=== PATIENT | female | born 1935 | race Caucasian/White ===

== ENCOUNTER 2017-07-23 13:12 | Emergency (ER) | payer MEDICARE ==
[~2017-07-23] VITALS: Ht 172.7 cm; Wt 65.8 kg
[~2017-07-23 13:12] MED LIST: ASPIRIN325 PO; CIPRO250 M1 PO; COZAAR 25 MG TA25 M1 PO; FOLIC ACID1 MG PO; HCTZ PO; IBUPROFEN 200200 M1 PO; METHOTREXATE 22.5 MG PO; PREDNISONE 20 M20 MG PO; PREVALITE PACKE1 PKT PO; TENORMIN25 MG PO
[2017-07-23] MEDS ORDERED: [UNRECOGNIZED DRUG - OTHER] (13:21)
[2017-07-23 14:13] LABS: ABSOLUTE BASOPHILS 0.1 thou/uL (0.0-0.2); ABSOLUTE EOSINOPHILS 0.1 thou/uL (0.0-0.7); ABSOLUTE LYMPHOCYTES 1.6 thou/uL (0.8-5.3); ABSOLUTE MONOCYTES 0.5 thou/uL (0.0-1.2); ABSOLUTE NEUTROPHILS 4.7 thou/uL (1.6-8.1); BASOPHILS 1.4 %; HEMATOCRIT 36.7 % (37.0-47.0); HEMOGLOBIN 12.6 gm/dL (12.0-15.0); LYMPHOCYTES 22.9 %; MCH 30.2 pg (26.0-34.0); MCHC 34.3 g/dL (28.0-37.0); MCV 88.3 fL (80.0-100.0); MONOCYTES 7.2 %; MPV 7.9 fl. (7.2-11.1); NUCLEATED RBCS 0 /100WBC; PLATELET COUNT* 231 thou/uL (150-400); POLYS 66.5 %; RBC 4.16 mil/uL (4.20-5.00); RDW-CV 14.5 % (10.5-14.5); WBC 7.1 thou/uL (4.0-11.0)
[2017-07-23 14:23] LABS: ANION GAP 6 mmol/L (7-16); BUN 20 mg/dL (7-18); CALCIUM 8.3 mg/dL (8.5-10.1); CHLORIDE 108 mmol/L (98-107); CO2 29 mmol/L (21-32); CREATININE 0.9 mg/dL (0.6-1.3); GLUCOSE 96 mg/dL (70-99); POTASSIUM 4.1 mmol/L (3.5-5.1); SODIUM 143 mmol/L (136-145)
[2017-07-23 14:24] LABS: PROTIME 10.1 Seconds (9.20-11.50)
[2017-07-23 14:34] LABS: ALBUMIN 3.2 g/dL (3.4-5.0); ALKALINE PHOSPHATASE 130 U/L (46-116); NT-PRO BRAIN NAT PEPTIDE 228 pg/mL (<300); SGOT 12 U/L (15-37); SGPT 17 U/L (30-65); TOTAL BILIRUBIN 0.2 mg/dL (<0.1-1.0); TOTAL PROTEIN 7.5 g/dL (6.4-8.2); TROPONIN-I LEVEL <0.06 ng/mL (<0.06)
[2017-07-23 14:48] LABS: URINE BILIRUBIN NEGATIVE (Negative); URINE BLOOD NEGATIVE (Negative); URINE CLARITY CLEAR; URINE COLOR YELLOW; URINE GLUCOSE-RANDOM NEGATIVE (Negative); URINE KETONES NEGATIVE (Negative); URINE LEUKOCYTES-REFLEX TRACE (Negative); URINE NITRITE-REFLEX NEGATIVE (Negative); URINE PROTEIN NEGATIVE (Negative); URINE UROBILINOGEN 0.2 E.U./dl (0.2-1.0)
[2017-07-23 14:55] LABS: CRYSTALS None Seen /LPF (None Seen); HYALINE CASTS 0-3 Few /LPF (None Seen); MUCUS 0-3 Light strn/LPF (None Seen); SQUAMOUS 4-10 Moderate /LPF (0-3)
[2017-07-23 14:57] LABS: BACTERIA-REFLEX 1-9 Few /HPF (None Seen); URINE RBC 0-2 Rare /HPF (0-2); URINE WBC-REFLEX 0-5 Rare /HPF (0-5)
[2017-07-23] MEDS ORDERED: KEFLEX500 M1 PO (16:13)
[2017-07-23 17:02] VITALS: BP 133/75
--- NOTE | 2017-07-24 10:20 | EKG ---
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: CARMELLA : 1935 Requested By: Ha Banerjee Order Number: [id number] MD: Jaxson Gregg Measurements Intervals [place] Rate: 87 P: 81 ID: 185 QRS: 65 QRSD: 84 T: 70 QT: 382 QTc: 460 Interpretive Statements Sinus rhythm Atrial premature complex Compared to ECG 07/27/2016 08:41:11 Atrial premature complex(es) less frequent Electronically Signed On 07-24-2017 10:20:39 MANAGER PEDIATRIC by Jaxson Gregg [email or web address] <ELECTRONICALLY SIGNED> By: Jaxson Gregg MD, [facility] 07/24/17 1020 1318 18 Jaxson Gregg MD, FACC /EPI
== END 2017-07-23 17:03 | disposition home or self-care (01) ==
LOC: M.ERS 13:12
PROVIDERS: Emergency Medicine Emergency Medical Services
DX: N39.0 Urinary tract infection, site not specified (principal); R53.1 Weakness; F17.210 Nicotine dependence, cigarettes, uncomplicated; Z88.5 Allergy status to narcotic agent; Z88.2 Allergy status to sulfonamides; Z88.8 Allergy status to other drugs, medicaments and biological substances

== ENCOUNTER → 2017-11-24 | Outpatient (CLI) | payer MEDICARE ==
[~2017-11-24] MED LIST changes: +KEFLEX500 M1 PO; +[UNRECOGNIZED DRUG - OTHER]
[2017-11-24 08:19] LABS: CREATININE 0.9 mg/dL (0.6-1.3)
== END ==
LOC: M.CT 07:49 → M.LAB 08:00 → M.CT 09:00
PROVIDERS: Family Medicine
DX: K57.30 Diverticulosis of large intestine without perforation or abscess without bleeding (principal); D25.9 Leiomyoma of uterus, unspecified; I70.0 Atherosclerosis of aorta

== ENCOUNTER 2018-09-26 19:28 | Emergency (ER) | payer MEDICARE ==
[~2018-09-26] VITALS: Ht 170.2 cm; Wt 74.8 kg
[~2018-09-26 19:28] MED LIST changes: -PREVALITE PACKE1 PKT PO; +PREVALITE PACKET4 GM PO; -[UNRECOGNIZED DRUG - OTHER]; +[UNRECOGNIZED DRUG - OTHER] INH
[2018-09-26] MEDS ORDERED: DICLOFENAC SODI75 MG PO (19:38)
[2018-09-26 20:04] LABS: ABSOLUTE BASOPHILS 0.1 thou/uL (0.0-0.2); ABSOLUTE EOSINOPHILS 0.3 thou/uL (0.0-0.7); ABSOLUTE LYMPHOCYTES 1.9 thou/uL (0.8-5.3); ABSOLUTE MONOCYTES 0.5 thou/uL (0.0-1.2); ABSOLUTE NEUTROPHILS 4.3 thou/uL (1.6-8.1); BASOPHILS 1.1 %; EOSINOPHILS 4.4 %; HEMATOCRIT 34.8 % (37.0-47.0); HEMOGLOBIN 11.6 gm/dL (12.0-15.0); LYMPHOCYTES 26.9 %; MCH 29.5 pg (26.0-34.0); MCHC 33.2 g/dL (28.0-37.0); MCV 88.7 fL (80.0-100.0); MONOCYTES 7.5 %; MPV 7.9 fl. (7.2-11.1); NUCLEATED RBCS 0 /100WBC; PLATELET COUNT* 245 thou/uL (150-400); POLYS 60.1 %; RBC 3.93 mil/uL (4.20-5.00); RDW-CV 14.5 % (10.5-14.5); WBC 7.1 thou/uL (4.0-11.0)
[2018-09-26 20:13] LABS: CALCIUM 9.1 mg/dL (8.5-10.1); CREATININE 0.8 mg/dL (0.6-1.3); POTASSIUM 4.1 mmol/L (3.5-5.1)
[2018-09-26 20:18] LABS: ALBUMIN 2.9 g/dL (3.4-5.0); TOTAL BILIRUBIN 0.1 mg/dL (<0.1-1.0); TOTAL PROTEIN 7.3 g/dL (6.4-8.2)
[2018-09-26] MEDS ORDERED: ELIQUIS5 M1 PO (21:38)
[2018-09-26] MEDS ORDERED: ELIQUIS5 MG PO (21:38)
[2018-09-26 21:54] VITALS: BP 177/93
== END 2018-09-26 21:55 | disposition home or self-care (01) ==
LOC: M.ERS 19:28
PROVIDERS: Nurse Practitioner Family
DX: I82.402 Acute embolism and thrombosis of unspecified deep veins of left lower extremity (principal); F17.210 Nicotine dependence, cigarettes, uncomplicated; M06.9 Rheumatoid arthritis, unspecified; Z88.8 Allergy status to other drugs, medicaments and biological substances; Z88.5 Allergy status to narcotic agent; Z88.2 Allergy status to sulfonamides; Z90.49 Acquired absence of other specified parts of digestive tract

== ENCOUNTER 2018-09-27 08:07 | Inpatient (IN) | payer MEDICARE ==
[~2018-09-27] VITALS: Ht 167.6 cm; Wt 76.2 kg
[~2018-09-27 08:07] MED LIST changes: +DICLOFENAC SODI75 MG PO; +ELIQUIS5 M1 PO; +ELIQUIS5 MG PO
[2018-09-27 08:12] VITALS: BP 136/91
[2018-09-27 08:57] LABS: ABSOLUTE BASOPHILS 0.1 thou/uL (0.0-0.2); ABSOLUTE EOSINOPHILS 0.2 thou/uL (0.0-0.7); ABSOLUTE LYMPHOCYTES 1.6 thou/uL (0.8-5.3); ABSOLUTE MONOCYTES 0.4 thou/uL (0.0-1.2); ABSOLUTE NEUTROPHILS 5.6 thou/uL (1.6-8.1); BASOPHILS 1.3 %; EOSINOPHILS 2.9 %; HEMATOCRIT 37.8 % (37.0-47.0); HEMOGLOBIN 12.5 gm/dL (12.0-15.0); LYMPHOCYTES 19.7 %; MCH 29.4 pg (26.0-34.0); MCHC 33.1 g/dL (28.0-37.0); MCV 88.7 fL (80.0-100.0); MONOCYTES 5.2 %; MPV 8.1 fl. (7.2-11.1); NUCLEATED RBCS 0 /100WBC; PLATELET COUNT* 253 thou/uL (150-400); POLYS 70.9 %; RBC 4.26 mil/uL (4.20-5.00); RDW-CV 14.5 % (10.5-14.5); WBC 7.9 thou/uL (4.0-11.0)
[2018-09-27 09:02] LABS: ANION GAP 10 mmol/L (7-16); BUN 20 mg/dL (7-18); CALCIUM 9.3 mg/dL (8.5-10.1); CHLORIDE 107 mmol/L (98-107); CO2 27 mmol/L (21-32); CREATININE 0.8 mg/dL (0.6-1.3); GLUCOSE 118 mg/dL (70-99); POTASSIUM 4.2 mmol/L (3.5-5.1); SODIUM 144 mmol/L (136-145)
[2018-09-27 09:18] LABS: ALBUMIN 3.2 g/dL (3.4-5.0); ALKALINE PHOSPHATASE 121 U/L (46-116); NT-PRO BRAIN NAT PEPTIDE 229 pg/mL (<300); SGOT 13 U/L (15-37); SGPT 22 U/L (30-65); TOTAL BILIRUBIN 0.3 mg/dL (<0.1-1.0); TOTAL PROTEIN 7.8 g/dL (6.4-8.2); TROPONIN-I LEVEL <0.06 ng/mL (<0.06)
--- NOTE | 2018-09-27 09:28 | NUR ---
GEO NOTIFIED UPON PT RETURN FROM CT. PT CONNECTED TO MONITOR AND O2
--- NOTE | 2018-09-27 10:57 | EKG ---
[place] [address] ELECTROCARDIOGRAM REPORT Name: ALTA MORA Room: [place] [address] ADM IN .R.#: [id number] Admission: 09/27/18 Attend Phys: Albin Underwood Discharge: Date of : 37 Report #: [id number] THIS REPORT FOR: //name// [facility] ED Test Date: 2018-09-27 Test Time: 08:32:54 Pat Name: ALTA MORA Department: Room: [facility] Gender: F Zigzagger: Lillian WOOD : 1935 Requested By: Ha Banerjee Order Number: [id number] MD: Jose Chow Measurements Intervals [place] Rate: 72 P: NE: QRS: 40 QRSD: 92 T: 71 QT: 420 QTc: 460 Interpretive Statements Atrial flutter Abnormal R-wave progression, early transition Compared to ECG 07/23/2017 13:19:06 Sinus rhythm no longer present Atrial premature complex(es) no longer present Electronically Signed On 09-27-2018 10:57:06 CDT by Jose Chow [email or web address] <ELECTRONICALLY SIGNED> By: Jose Chow MD, [facility] 09/27/18 1057 0832 0832 Jose Chow MD, [facility] /EPI
[2018-09-27 11:49] VITALS: BP 152/76
[2018-09-27 12:15] VITALS: BP 148/75
[2018-09-27 16:00] VITALS: BP 152/85
--- NOTE | 2018-09-27 19:52 | NUR ---
ASSUMED CARE OF PT FROM ER. PT ARRIVED TO ROOM 232 AT APPROX 1200. PT A/O X4, C/O SOME BACK PAIN. PT INSTRUCTED LIMITED AMBULATION DUE TO DVT. PT VERBALIZED UNDERSTANDING. ADMISSION HX AND ASSESMENT DONE CHARTED. PT SR ON THE MONITOR, VSS. PT USES CALL LIGHT APPROPRIALATY. UP AD THEO. ON RA. REPORT GIVEN TO RUBA ARRIAZA
[2018-09-27 20:15] VITALS: BP 150/70
[2018-09-28] VITALS: BP 137/63
[2018-09-28 04:00] VITALS: BP 131/72
--- NOTE | 2018-09-28 05:11 | NUR ---
NO COMPLAIN OF CHEST PAIN AND LEG PAIN THE WHOLE NIGHT. NO RESPIRATOTRY DISTRESS NOTED. CALL BOYD AT BED SIDE.
[2018-09-28 08:52] VITALS: BP 144/69
--- NOTE | 2018-09-28 11:39 | NUR ---
MET WITH PT TO DISCUSS HOME SITUATION/DC PLANNING. PT LIVES WITH COUSIN, SHE IS INDEPENDENT AND ACTIVE. USES NO EQUIPMENT AND HASN'T HAD HH OR BEEN TO SNF. WAS DX WITH DVT IN ER AND ADMITTED NOW WITH PE. PT VOICED CONCERN ABOUT COST OF ELIQUIS. DISCUSSED WITH DR OLIVER, SCRIPT FOR ELIQUIS 5MG BID RECEIVED AND CALLED INTO [employer]. COPAY IS $40. PT INFORMED AND GIVEN 1ST MONTH FREE CARD. EXPLAINED TO PT THAT DR THAT DISCHARGES HER MAY GIVE ANOTHER SCRIPT. WILL FOLLOW ANTICIPATE DC TOMORROW
[2018-09-28 13:00] VITALS: BP 145/65
[2018-09-28 17:55] VITALS: BP 120/61
[2018-09-28 20:00] VITALS: BP 130/74
--- NOTE | 2018-09-28 20:00 | NUR ---
RECEIVED REPORT AND ASSUMED CARE OF PT, ASSESSMENT COMPLETED. NO SOB NOTED. TELEMETRY ON SHOWING A-FIB/SR WITH FREQ PAC. WILL CONT TO MONITOR AND ASSIST NEEDED.
[2018-09-29 00:01] VITALS: BP 132/65
[2018-09-29 04:00] VITALS: BP 135/61
[2018-09-29 05:06] LABS: ABSOLUTE BASOPHILS 0.1 thou/uL (0.0-0.2); ABSOLUTE EOSINOPHILS 0.3 thou/uL (0.0-0.7); ABSOLUTE LYMPHOCYTES 2.2 thou/uL (0.8-5.3); ABSOLUTE MONOCYTES 0.5 thou/uL (0.0-1.2); ABSOLUTE NEUTROPHILS 3.8 thou/uL (1.6-8.1); BASOPHILS 1.7 %; EOSINOPHILS 3.9 %; HEMOGLOBIN 11.1 gm/dL (12.0-15.0); LYMPHOCYTES 31.5 %; MCH 29.1 pg (26.0-34.0); MCHC 32.7 g/dL (28.0-37.0); MCV 88.8 fL (80.0-100.0); MONOCYTES 7.7 %; MPV 8.2 fl. (7.2-11.1); NUCLEATED RBCS 0 /100WBC; PLATELET COUNT* 251 thou/uL (150-400); POLYS 55.2 %; RBC 3.83 mil/uL (4.20-5.00); RDW-CV 14.1 % (10.5-14.5); WBC 6.8 thou/uL (4.0-11.0)
--- NOTE | 2018-09-29 05:47 | NUR ---
SLEPT WELL TONIGHT. INDEPENDENT WITH STEADY GAIT TO AND FROM BR. TELEMETRY SHOWING SR WITH FREQ PAC, NO CHANGE IN ASSESSMENT. HS GOALS OF REST AND SAFETY ACHIEVED. HOURLY ROUNDING OBSERVED.
[2018-09-29 07:30] VITALS: BP 135/72
[2018-09-29] MEDS ORDERED: ELIQUIS5 M1 PO (11:22)
[2018-09-29] MEDS ORDERED: ELIQUIS5 MG PO (11:22)
[2018-09-29 11:50] VITALS: BP 135/72
--- NOTE | 2018-09-29 12:34 | NUR ---
RECEIVED DISCHARGE ORDERS PER DR BERGER. EDUCATED THE PATIENT AND HER FAMILY ON F/U APPOINTMENT WITH HER PRIMARY DR. EDUCATED ON HOME MEDICATIONS. NEW SCRIPT GIVEN WITH MEDICATION INFORMATION SHEETS. SCRIPT FOR LUCIO WAS CALLED INTO PATIENTS PHARMACY PER CASE MANAGEMENT AND IS READY FOR PICKUP. PATIENTS FAMILY WAS ABLE TO VERIFY SCRIPT WAS READY FOR PICKUP PRIOR TO PATIENT DISCHARGING. BOTH PATIENT AND FAMILY DENIED ANY QUESTIONS/CONCERNS AT TIME OF DISCHARGE. SHE IS LEAVING VIA WHEELCHAIR ACCOMPANIED BY NURSING STAFF WITH HER FAMILY TO TRANSPORT. ALL BELONGINGS PACKED AND LEAVING WITH THE PATIENT.
== END 2018-09-29 12:26 | disposition home or self-care (01) | DRG 176 ==
LOC: M.ERS 08:07 → M.TBA-ER 10:19 → M.2W 10:19
PROVIDERS: Emergency Medicine Emergency Medical Services; ADMIT Internal Medicine
DX: I26.99 Other pulmonary embolism without acute cor pulmonale (principal); I82.409 Acute embolism and thrombosis of unspecified deep veins of unspecified lower extremity; I10 Essential (primary) hypertension; E78.5 Hyperlipidemia, unspecified; F17.210 Nicotine dependence, cigarettes, uncomplicated; R55 Syncope and collapse; Z79.899 Other long term (current) drug therapy; Z87.440 Personal history of urinary (tract) infections; Z90.49 Acquired absence of other specified parts of digestive tract; Z88.6 Allergy status to analgesic agent; Z88.2 Allergy status to sulfonamides; Z88.8 Allergy status to other drugs, medicaments and biological substances

== ENCOUNTER 2019-02-12 08:42 | Inpatient (IN) | payer MEDICARE ==
[2019-02-12] VITALS (17 sets, daily range): BP systolic 79–148; BP diastolic 51–99
[~2019-02-12] VITALS: Ht 170.2 cm; Wt 73.9 kg
[2019-02-12] MEDS ORDERED: DICLOFENAC SODI75 MG PO (09:00)
[2019-02-12] MEDS ORDERED: ASPIR 8181 MG PO (09:01)
[2019-02-12 09:20] LABS: BE -3.4 mmol/L (-2 to +3); PCO2 42.1 mmHg (35.0-45.0); PO2 78.8 mmHg (75.0-100.0)
[2019-02-12 09:43] LABS: HEMATOCRIT 37.3 % (37.0-47.0); HEMOGLOBIN 12.3 gm/dL (12.0-15.0); MCH 29.2 pg (26.0-34.0); MCHC 32.9 g/dL (28.0-37.0); MCV 88.9 fL (80.0-100.0); MPV 8.3 fl. (7.2-11.1); NUCLEATED RBCS 0 /100WBC; PLATELET COUNT* 214 thou/uL (150-400); RBC 4.19 mil/uL (4.20-5.00); RDW-CV 15.1 % (10.5-14.5); WBC 12.6 thou/uL (4.0-11.0)
[2019-02-12 09:56] LABS: ANION GAP 8 mmol/L (7-16); BUN 26 mg/dL (7-18); CALCIUM 8.4 mg/dL (8.5-10.1); CHLORIDE 105 mmol/L (98-107); CO2 27 mmol/L (21-32); CREATININE 0.9 mg/dL (0.6-1.3); GLUCOSE 109 mg/dL (70-99); POTASSIUM 4.2 mmol/L (3.5-5.1); SODIUM 140 mmol/L (136-145)
[2019-02-12 10:01] LABS: ALBUMIN 3.2 g/dL (3.4-5.0); ALKALINE PHOSPHATASE 110 U/L (46-116); SGOT 14 U/L (15-37); SGPT 20 U/L (30-65); TOTAL BILIRUBIN 0.4 mg/dL (<0.1-1.0); TROPONIN-I LEVEL <0.06 ng/mL (<0.06)
[2019-02-12 10:10] LABS: ABSOLUTE EOSINOPHILS 0.1 thou/uL (0.0-0.7); ABSOLUTE LYMPHOCYTES 1.4 thou/uL (0.8-5.3); ABSOLUTE MONOCYTES 0.3 thou/uL (0.0-1.2); ABSOLUTE NEUTROPHILS 10.8 thou/uL (1.6-8.1); ANISOCYTOSIS 1+; PLATELET ESTIMATE ADEQUATE; POIKILOCYTOSIS 1+
--- NOTE | 2019-02-12 16:56 | EKG ---
[place] [address] ELECTROCARDIOGRAM REPORT Name: ALTA MORA Room: [address] ADM IN M.R.#: [id number] Admission: 02/12/19 Attend Phys: Pasquale Jones MD Discharge: Date of : 37 Report #: [id number] THIS REPORT FOR: //name// [facility] ED Test Date: 2019-02-12 Test Time: 08:48:37 Pat Name: ALTA MORA Department: Room: [facility] Gender: F Water Service Supervisor: : 1935 Requested By: Jonelle Chase Order Number: [id number] MD: Smith Jose Measurements Intervals [place] Rate: 101 P: GA: QRS: 44 QRSD: 82 T: 65 QT: 364 QTc: 472 Interpretive Statements Sinus tachycardia Compared to ECG 09/27/2018 08:32:54 Atrial flutter no longer present Electronically Signed On 02-12-2019 16:55:51 CDT by Smith Jose [email or web address] <ELECTRONICALLY SIGNED> By: Smith Jose MD, [facility] 02/12/19 1655 Smith Jose MD, [facility] /EPI
--- NOTE | 2019-02-12 16:56 | EKG ---
[place] [address] ELECTROCARDIOGRAM REPORT Name: ALTA MORA Room: [address] ADM IN M.R.#: [id number] Admission: 02/12/19 Attend Phys: Pasquale Jones MD Discharge: Date of : 37 Report #: [id number] THIS REPORT FOR: //name// [facility] ED Test Date: 2019-02-12 Test Time: 09:20:48 Pat Name: ALTA MORA Department: Room: [facility] Gender: F Conference Manager: : 1935 Requested By: Jonelle Chase Order Number: [id number] MD: Smith Jose Measurements Intervals [place] Rate: 100 P: 83 [place]: 194 QRS: 29 QRSD: 80 T: 79 QT: 367 QTc: 474 Interpretive Statements Sinus tachycardia Atrial premature complex Anteroseptal infarct, age indeterminate Compared to ECG 09/27/2018 08:32:54 Atrial premature complex(es) now present Myocardial infarct finding now present Atrial flutter no longer present Electronically Signed On 02-12-2019 16:56:30 CDT by Smith Jose [email or web address] <ELECTRONICALLY SIGNED> By: Smith Jose MD, FAC 02/12/19 1656 9 9 Smith Jose MD, FAC /EPI
[2019-02-13] VITALS (7 sets, daily range): BP systolic 98–131; BP diastolic 50–79
[2019-02-13 03:40] LABS: HEMATOCRIT 34.8 % (37.0-47.0); HEMOGLOBIN 11.5 gm/dL (12.0-15.0); MCH 29.5 pg (26.0-34.0); MCHC 32.9 g/dL (28.0-37.0); MCV 89.6 fL (80.0-100.0); RBC 3.88 mil/uL (4.20-5.00); RDW-CV 15.7 % (10.5-14.5); WBC 7.4 thou/uL (4.0-11.0)
[2019-02-13 03:52] LABS: CALCIUM 7.7 mg/dL (8.5-10.1); CREATININE 0.9 mg/dL (0.6-1.3); MAGNESIUM 1.9 mg/dL (1.8-2.4); POTASSIUM 4.7 mmol/L (3.5-5.1)
--- NOTE | 2019-02-13 11:21 | EKG ---
[place] [address] ELECTROCARDIOGRAM REPORT Name: ALTA MORA Room: [address] DIS IN M.R.#: [id number] Admission: 02/12/19 Attend Phys: Pasquale Jones MD Discharge: 02/13/19 Date of : 37 Report #: [id number] THIS REPORT FOR: //name// [facility] Test Date: 2019-02-13 Test Time: 08:29:40 Pat Name: ALTA MORA Department: Room: [address] Gender: F Dental Instructor: : 1935 Requested By: Smith Jose Order Number: [id number] Corinna MD: Jaxson Gregg Measurements Intervals [place] Rate: 61 P: [place]: 196 QRS: 41 QRSD: 86 T: 73 QT: 462 QTc: 466 Interpretive Statements Atrial-paced complexes Compared to ECG 02/12/2019 09:20:48 Sinus tachycardia no longer present Atrial paced rhythm noted Electronically Signed On 02-13-2019 11:21:30 CDT by Jaxson Gregg [email or web address] <ELECTRONICALLY SIGNED> By: Jaxson Gregg MD, [facility] 02/13/19 1121 0829 0829 Jaxson Gregg MD, [facility] /EPI
--- NOTE | 2019-02-13 11:22 | EKG ---
[place] [address] ELECTROCARDIOGRAM REPORT Name: ALTA MORA Room: [address] DIS IN M.R.#: [id number] Admission: 02/12/19 Attend Phys: Pasquale Jones MD Discharge: 02/13/19 Date of : 37 Report #: [id number] THIS REPORT FOR: //name// [facility] Test Date: 2019-02-13 Test Time: 08:30:39 Pat Name: ALTA MORA Department: Room: [address] Gender: F Cycle Analyst: : 1935 Requested By: Smith Jose Order Number: [id number] Corinna MD: Jaxson Gregg Measurements Intervals [place] Rate: 86 P: NC: 130 QRS: 37 QRSD: 99 T: 71 QT: 455 QTc: 545 Interpretive Statements Atrial-ventricular dual-paced complexes No further rhythm analysis attempted due to paced rhythm Electronically Signed On 02-13-2019 11:22:21 CDT by Jaxson Gregg [email or web address] <ELECTRONICALLY SIGNED> By: Jaxson Gregg MD, [facility] 02/13/19 1122 9 9 Jaxson Gregg MD, FAC /EPI
--- NOTE | 2019-02-14 09:12 | CON ---
[facility] [address] [place] [address] CONSULTATION Name: ALTA MORA Room: [address] IN M.R.#: [id number] Admission: 02/12/19 Attend Phys: Pasquale Jones MD Discharge: 02/13/19 Date of : 37 Report #: [id number] THIS REPORT FOR: //name// CC: Pasquale Carey DO DATE OF SERVICE: 02/12/2019 INDICATION: Near-syncope. HISTORY OF PRESENT ILLNESS: The patient is a very pleasant 83-year-old white female, who was brought to the Emergency Room after a near syncopal episode. While in the Emergency Room, she had a recurrent episode that she describes as starting out like mini hot flash. She was noted to have sinus node arrest with ventricular escape rhythm in the 30s. The patient states she has been having episodes like this for the last 2 months. She denies any chest pain, tightness, or pressure. PAST MEDICAL HISTORY: 1. Hypertension. 2. Remote history of pulmonary embolus with completed course of anticoagulant. 3. Left elbow fracture. 4. Appendectomy. 5. Cholecystectomy. 6. Pilonidal cyst removal. 7. Rheumatoid arthritis. 8. Shingles. ALLERGIES: ATENOLOL, CODEINE, AND SULFA. CURRENT MEDICATIONS: Cholestyramine 4 grams daily, losartan 25 mg daily, Voltaren 75 mg b.i.d., aspirin 81 mg daily. FAMILY HISTORY: Noncontributory. SOCIAL HISTORY: The patient smokes daily. She denies use of alcohol. PHYSICAL EXAMINATION: VITAL SIGNS: Blood pressure 120/82, pulse presently 80 and regular. GENERAL: This is a pleasant female in no distress. Mood and affect appropriate. HEENT: Extraocular muscles intact. Mucous membranes moist. NECK: Shows no jugular venous distention. There are no carotid bruits. CHEST: Reveals diminished breath sounds without wheezes or rales. CARDIOVASCULAR: Reveals a regular rhythm with normal S1 [place] [address] CONSULTATION Name: ALTA MORA Room: [address] IN ..#: [id number] Admission: 02/12/19 Attend Phys: Pasquale Jones MD Discharge: 02/13/19 Date of : 37 Report #: [id number] appreciate gallop or murmur. ABDOMEN: Reveals normal bowel sounds. The abdomen is soft, nontender. EXTREMITIES: Shows no edema. Peripheral pulses palpable. SKIN: Warm and dry. LABORATORY DATA: A 12-lead EKG shows sinus rhythm without acute ST or T-wave abnormality. Telemetry monitoring shows an episode of sinus node arrest with ventricular escape. IMPRESSION AND RECOMMENDATIONS: 1. 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 Recommend permanent pacemaker placement. 2. Hypertension, presently stable. Continue losartan at current dose. 3. Tobacco use, cessation advised. <ELECTRONICALLY SIGNED> By: Smith Jose MD, FACC 02/14/19911 1117 2035Michae Kirit Jose MD, FACC /nt
--- NOTE | 2019-02-22 11:07 | CARD ---
[address] [address] CARDIAC CATH REPORT Name: MORGANALTA Lillian Room: [address]#: [id number] Admission: 02/12/19 Attend Phys: Pasquale Jones MD Discharge: 02/13/19 Date of : 37 Report #: [id number] THIS REPORT FOR: //name// ADDENDUM APPROVED REPORT Study performed: 02/12/2019 16:17:38 Patient Status: In-Patient Room #: Event Personnel: Smith Jose Botany Professor, Ayleen Bertrand RN Flight Line Service Attendant, Vanessa Rose RTR ScrubYoav Becki RTR Monitor, Zari Shaw RN Flight Line Service Attendant Exam: Insertion of Dual Chamber Permanent Pacemaker Indications: Complete heart block The patient is a 83 year-old female with a history of sinus node arrest and syncope. Conscious Sedation Start time: 17:17 End Time: 17:55 Fentanyl 50 mcg Versed 2 mg 3.4 minutes fluoro, 166 mGy. Implanted Devices: Eluna 8 DR-T ([employer] generator, model #967499, serial #[id number]. Solia S53 Atrial Lead, model #156905, serial number [id number]. Solia S60 Ventricular Lead, model #600204, serial #[id number] Procedure The patient underwent informed consent. We discussed the details of the procedure including the risks, which include, but not limited to bleeding, infection, vascular damage, cardiac perforation, and pneumothorax. She understood these risks and was willing to proceed. As such, she was brought to the EP/Cardiac Catheterization laboratory in a fasting and sedated state and prepped and draped in a The patient underwent conscious sedation, with no related complications. The patient was brought to the EP/Cardiac Catheterization laboratory and the left chest and shoulder were prepped and draped in a sterile manner. During this case, Fluoroscopy and 20cc Omnipaque were used for imaging. The left subclavian region was infiltrated with 2% Lidocaine subcutaneous anesthesia. A transverse incision was made in [place] [address] CARDIAC CATH REPORT Name: ALTA MORA Room: [address]#: [id number] Admission: 02/12/19 Attend Phys: Pasquale Jones MD Discharge: 02/13/19 Date of : 37 Report #: [id number] The subcutaneous pocket was formed via blunt dissection. Percutaneous venous access was achieved and an introducer sheath was inserted into the left Subclavian vein. Through the introducer sheaths the atrial and ventricular lead wires were positioned in the right atrial appendage and right ventricular apex respectively. Utilizing fluoroscopic guidance, the atrial and ventricular lead wires were advanced over the wires and positioned in the right atria and right ventricle respectively. Capturing and sensing thresholds were verified. Electrode Parameters P Wave: 3.10 mV R Wave: 9.40 mV Atrial Threshold: 0.8 V at 0.40 ms Ventricular Threshold: 0.8 V at 0.40 ms Atrial Resistance: 526 ohms Ventricular Resistance: 936 ohms Dual Chamber The atrial and ventricular leads were then secured using 0 silk sutures. The subcutaneous pocket was irrigated with ancef antibiotic solution.The atrial and ventricular leads were attached to the appropriate receptacles on the pulse generator and set screws firmly tightened to insure adequate contact and stability. The lead and pulse generator were placed into the subcutaneous pocket. Sharp and sponge counts were confirmed to be correct. At this time the pocket was closed subcutaneously with a 2.0 Vicryl and the skin was closed with a 4.0 Vicryl. The operative site was dressed in sterile fashion with steri strips, benzoin spray, telfa, tegaderm and the patient was transferred to the floor in stable condition. Complications The patient tolerated the procedure well and there were no complications associated with the procedure. Findings Specimens Removed: N/A Estimated Blood Loss: <5ml Conclusion 1. Complete heart block. 2. Successful placement of a dual-chamber pacemaker with atrial [place] [address] CARDIAC CATH REPORT Name: ALTA MORA Room: [address] IN M.R.#: [id number] Admission: 02/12/19 Attend Phys: Pasquale Jones MD Discharge: 02/13/19 Date of : 37 Report #: [id number] Recommendations 1. Follow-up site check in one week. 2. Follow-up device interrogation in one to 2 months. <ELECTRONICALLY SIGNED> By: Smith Jose MD, FACC 02/22/[address] [facility] Jose MD, FACC /INF
== END 2019-02-13 10:20 | disposition home or self-care (01) | DRG 243 ==
LOC: M.ERS 08:42 → M.ICU 09:43 → M.TBA-ER 09:43 → M.ICU 10:47
PROVIDERS: Personal Emergency Response Attendant; ADMIT Internal Medicine
PROC: 0JH606Z Insertion of Pacemaker, Dual Chamber into Chest Subcutaneous Tissue and Fascia, Open Approach (ICD-10-PCS; principal; 2019-02-12)
PROC: 02H63JZ Insertion of Pacemaker Lead into Right Atrium, Percutaneous Approach (ICD-10-PCS; principal; 2019-02-12)
PROC: 02HK3JZ Insertion of Pacemaker Lead into Right Ventricle, Percutaneous Approach (ICD-10-PCS; principal; 2019-02-12)
DX: I44.2 Atrioventricular block, complete (principal); R65.10 Systemic inflammatory response syndrome (SIRS) of non-infectious origin without acute organ dysfunction; D68.59 Other primary thrombophilia; I10 Essential (primary) hypertension; M06.9 Rheumatoid arthritis, unspecified; I95.9 Hypotension, unspecified; F17.210 Nicotine dependence, cigarettes, uncomplicated; Z87.81 Personal history of (healed) traumatic fracture; Z86.711 Personal history of pulmonary embolism; Z90.49 Acquired absence of other specified parts of digestive tract; Z79.82 Long term (current) use of aspirin; Z79.899 Other long term (current) drug therapy; Z88.2 Allergy status to sulfonamides; Z86.718 Personal history of other venous thrombosis and embolism; Z88.5 Allergy status to narcotic agent; Z88.8 Allergy status to other drugs, medicaments and biological substances; Z71.6 Tobacco abuse counseling; Z82.49 Family history of ischemic heart disease and other diseases of the circulatory system

== ENCOUNTER 2019-11-28 08:15 | Observation (INO) | payer MEDICARE ==
[~2019-11-28] VITALS: Ht 170.2 cm; Wt 74.8 kg
[2019-11-28 08:15] VITALS: BP 147/64
[~2019-11-28 08:15] MED LIST changes: +ASPIR 8181 MG PO
[2019-11-28] MEDS ORDERED: ANORO ELLIPTA1 EACH INH (08:20)
[2019-11-28 08:49] LABS: CALCIUM 8.7 mg/dL (8.5-10.1); CREATININE 0.9 mg/dL (0.6-1.3); POTASSIUM 4.8 mmol/L (3.5-5.1)
[2019-11-28 08:53] LABS: APTT 24.2 Seconds (25.0-31.3); PROTIME 10.2 Seconds (9.20-11.50)
[2019-11-28 08:58] LABS: ALBUMIN 3.7 g/dL (3.4-5.0); TOTAL BILIRUBIN 0.5 mg/dL (<0.1-1.0); TOTAL PROTEIN 8.3 g/dL (6.4-8.2)
[2019-11-28 09:29] LABS: ABSOLUTE BASOPHILS 0.1 thou/uL (0.0-0.2); ABSOLUTE EOSINOPHILS 0.1 thou/uL (0.0-0.7); ABSOLUTE LYMPHOCYTES 1.4 thou/uL (0.8-5.3); ABSOLUTE MONOCYTES 0.3 thou/uL (0.0-1.2); ABSOLUTE NEUTROPHILS 5.3 thou/uL (1.6-8.1); BASOPHILS 1.1 %; HEMATOCRIT 42.6 % (37.0-47.0); HEMOGLOBIN 14.3 gm/dL (12.0-15.0); MCH 29.8 pg (26.0-34.0); MCHC 33.7 g/dL (28.0-37.0); MCV 88.5 fL (80.0-100.0); MONOCYTES 4.7 %; MPV 8.8 fl. (7.2-11.1); NUCLEATED RBCS 0 /100WBC; PLATELET COUNT* 244 thou/uL (150-400); POLYS 73.2 %; RBC 4.81 mil/uL (4.20-5.00); RDW-CV 15.2 % (10.5-14.5); WBC 7.3 thou/uL (4.0-11.0)
[2019-11-28 10:54] LABS: URINE BILIRUBIN NEGATIVE (Negative); URINE BLOOD NEGATIVE (Negative); URINE CLARITY CLEAR; URINE COLOR YELLOW; URINE GLUCOSE-RANDOM NEGATIVE (Negative); URINE KETONES NEGATIVE (Negative); URINE LEUKOCYTES-REFLEX NEGATIVE (Negative); URINE PROTEIN NEGATIVE (Negative); URINE UROBILINOGEN 0.2 E.U./dl (0.2-1.0)
[2019-11-28 10:55] LABS: URINE NITRITE-REFLEX POSITIVE (Negative)
[2019-11-28 11:01] LABS: BACTERIA-REFLEX >30 Many /HPF (None Seen); CASTS None Seen /LPF (None Seen); CRYSTALS None Seen /LPF (None Seen); MUCUS 0-3 Light strn/LPF (None Seen); SQUAMOUS 0-3 Few /LPF (0-3); URINE RBC 0-2 Rare /HPF (0-2); URINE WBC-REFLEX 0-5 Rare /HPF (0-5)
[2019-11-28 11:12] LABS: CHOLESTEROL 230 mg/dL (<200); HDL CHOLESTEROL 82 mg/dL (>40); LDL CHOLESTEROL 134 mg/dL (<100); SERUM ASSESSMENT Clear; TC:HDL 2.8 Ratio (Not establshd); TRIGLYCERIDE 72 mg/dL (<150); VLDL 14 mg/dL (<40)
[2019-11-28 14:25] VITALS: BP 145/80
[2019-11-28 14:34] VITALS: BP 120/70
[2019-11-28 16:10] VITALS: BP 118/60
--- NOTE | 2019-11-28 16:18 | EKG ---
[place] [address] ELECTROCARDIOGRAM REPORT Name: ALTA MORA Room: [address] M.R.#: [id number] Admission: 11/28/19 Attend Phys: Pasquale Jones, Discharge: Date of : 37 Date of Service: 11/28/19 0848 Report #: [id number] THIS REPORT FOR: //name// [facility] ED Test Date: 2019-11-28 Test Time: 08:48:12 Pat Name: ALTA MORA Department: Room: [facility] Gender: F Digester Operator: ELENA : 1935 Requested By: David Duckworth Order Number: [id number] MD: Tam Bass Measurements Intervals [place] Rate: 72 P: [place]: QRS: 27 QRSD: 95 T: 63 QT: 432 QTc: 473 Interpretive Statements Sinus rhythm Compared to ECG 02/13/2019 08:30:39 sinus rhythm is noted Electronically Signed On 11-28-2019 16:18:41 CDT by Tam Bass [email or web address] <ELECTRONICALLY SIGNED> By: Tam Bass MD, [facility] 11/28/19 1618 0848 0848 Tam Bass MD, [facility] /EPI
--- NOTE | 2019-11-28 16:19 | EKG ---
[place] [address] ELECTROCARDIOGRAM REPORT Name: GABRIEL MORAE Lillian Room: [address]R.#: [id number] Admission: 11/28/19 Attend Phys: Pasquale Jones, Discharge: Date of : 37 Date of Service: 11/28/19 1020 Report #: [id number] THIS REPORT FOR: //name// [facility] ED Test Date: 2019-11-28 Test Time: 10:20:43 Pat Name: ALTA MORA Department: Room: [facility] Gender: F Tuft Machine Operator: MINDY : 1935 Requested By: David Duckworth Order Number: [id number] MD: Tam Bass Measurements Intervals [place] Rate: 73 P: -11 UT: 257 QRS: 35 QRSD: 101 T: 67 QT: 418 QTc: 461 Interpretive Statements Sinus rhythm Atrial premature complex Compared to ECG 11/28/2019 08:48:12 Atrial premature complex(es) now present Electronically Signed On 11-28-2019 16:19:17 CDT by Tam Bass [email or web address] <ELECTRONICALLY SIGNED> By: Tam Bass MD, [facility] 11/28/19 1619 1020 1020 Tam Bass MD, [facility] /EPI
--- NOTE | 2019-11-28 18:43 | NUR ---
RECEIVED REPORT FROM [facility] IN THE ER. PT ARRIVED TO TELE FLOOR AROUND 1434, ASSUMED CARE. PT A&O X4. ADMISSION ASSESSMENT, HISTORY AND EDUCATION COMPLETED CHARTED. MEDS PER EMAR. IV INTACT. PT DENIES PAIN OR DISCOMFORT. NEURO CONSULTED- PT TO HAVE A CTA ANGIOGRAM TOMORROW. NIH 1. FAMILY WAS AT BEDSIDE FOR ADMISSION AND THEN LEFT. PT TOLERATING DINNER. UP WITH SBA. PT CURRENTLY RESTING IN BED WATCHING TV. FALL PRECAUTIONS IN PLACE. CALL LIGHT IS WITHIN REACH. HOURLY ROUNDING PERFORMED. WCTM FOR DURATION OF SHIFT.
[2019-11-28 20:00] VITALS: BP 117/70; BP 172/73
[2019-11-29] VITALS: BP 151/82
[2019-11-29 01:08] LABS: CALCIUM 7.9 mg/dL (8.5-10.1); POTASSIUM 4.3 mmol/L (3.5-5.1)
[2019-11-29 04:00] VITALS: BP 175/85
--- NOTE | 2019-11-29 07:50 | NUR ---
ASSUMED PT CARE AT APPROX 1930. PT IS AWAKE AND ORIENTED X4. PROVIDER RELATIONS REPRESENTATIVE IS TRACING SR. PT DENIES PAIN. NIH IS 0. NEURO CHECKS DONE Q3H CHARTED. BOLUS OF 500ml OF NS GIVEN ORDERED BY DR ORTEGA, BMP CHECKED, SEE MAR, BUN, GFR, CREATININE RESULTS COMMUNICATED TO DR ORTEGA AFTER BOLUS, DR ORTEGA STATED TO HAVE BMP REPEATED AT 0730-ORDERS PUT IN, AND TO CALL HIM WITH RESULTS, CTA OF THE HEAD TO BE DONE IN AM AT AROUND 0930AM DEPENDING ON BMP RESULTS. NO ACUTE CHANGES, NEUROLOGIC CHANGES NOTED THROUGHOUT THIS SHIFT. REPORT GIVEN TO MONY ARRIAZA.
[2019-11-29 08:00] VITALS: BP 153/83
[2019-11-29] MEDS ORDERED: LIPITOR40 MG PO (08:12)
[2019-11-29] MEDS ORDERED: CLOPIDOGREL75 MG PO (08:12)
[2019-11-29 08:37] LABS: CALCIUM 8.2 mg/dL (8.5-10.1); POTASSIUM 4.1 mmol/L (3.5-5.1)
[2019-11-29 09:25] LABS: HEMATOCRIT 40.4 % (37.0-47.0); HEMOGLOBIN 13.4 gm/dL (12.0-15.0); MCH 29.4 pg (26.0-34.0); MCHC 33.1 g/dL (28.0-37.0); MCV 88.9 fL (80.0-100.0); MPV 8.3 fl. (7.2-11.1); RBC 4.55 mil/uL (4.20-5.00); RDW-CV 15.4 % (10.5-14.5); WBC 6.7 thou/uL (4.0-11.0)
--- NOTE | 2019-11-29 11:42 | CON ---
[address] [address] CONSULTATION Name: MORGANALTA Lillian Room: [address] Narinder#: [id number] Admission: 11/28/19 Attend Phys: Pasquale Jones MD Discharge: Date of : 37 Report #: [id number] THIS REPORT FOR: //name// cc: Tam Carey John E. DO ~ THIS REPORT FOR: //name// CC: Pasquale Carey DATE OF SERVICE: 11/28/2019 HISTORY OF PRESENT ILLNESS: This is an 84-year-old female patient who was seen by me for stroke. The patient's symptom is that of dizziness. This dizziness started about 2-3 days ago. It started spontaneously without any trauma. It does look like when she moves her head, it becomes worse. She does not have much ataxia. Symptoms have not become better. She had another episode of dizziness like this before, but has not had that for some time and she does not know when was the last time she had that episode. She was evaluated by in the Emergency Room and she got some dye there with a CT angiogram. REVIEW OF SYSTEMS: Positive for the fact that she was diagnosed with a stroke on the CT; I reviewed those films and it looks like the patient had a small stroke; it is in the left thalamus area, but brainstem and cerebellum looks okay on CT, although CT is not a very good test for them. She has complained of some tingling in the lower extremities, but she did not describe that tingling to me. She has described some headaches in the past, but now she complained of some neck pain that is difficult to evaluate because she does have a history of rheumatoid arthritis. She does have a prior history of hypercoagulable state. She was in fact on Eliquis for a few months at one time. She had a prior history of shingles, bradycardia, appendectomy, gallbladder. Review of systems also indicated that she is not complaining of any eye, cardiac symptoms. She sometimes looks a little deep short of breath, but she said she is not having any shortness of breath. She had some nausea, vomiting, which is better. She does not have any urinary symptom and she does not have any musculoskeletal, constitutional, dermatological, hematological, psychiatric, throat, allergic symptom associated with present symptomatology. PAST MEDICAL HISTORY: Negative for any stroke. FAMILY HISTORY: Negative for any early age stroke. SOCIAL HISTORY: She smokes. PHYSICAL EXAMINATION: Indicates she is alert, responsive, able to follow simple and complex command. Her speech, concentration, fund [place] [address] CONSULTATION Name: ALTA MORA Room: [address] M.RCarri#: [id number] Admission: 11/28/19 Attend Phys: Pasquale Jones MD Discharge: Date of : 36 Report #: [id number] at her baseline. Cranial nerve examination 2-12 looks unremarkable. She has a symmetrical strength, sensation, reflexes and tone in all 4 extremities. Her fazyrc-ld-gytn and igjg-ul-yhai is unremarkable. There is no meningeal sign. I could not look at the patient's fundus. She is a well-built individual. She does not have any dysmorphic features of eyes, ears and face. Her blood pressure is 118/60, respirations 16, pulse is 65, temperature is 97.8. Her hearing and vision is adequate. Her pulses are nicely palpable. LABORATORY DATA: Her white count is 7.3 and her glomerular filtration rate is 60. IMPRESSION: 1. It is possible that this patient's symptom is because of an ENT pathology because that is statistically most likely cause for this kind of symptom, but we need to rule out posterior fossa pathology, especially basilar artery pathology. That is unlikely to change any treatment at this time because symptoms are 2 days' duration and patient's NIH scale is 0. She needs to be treated with a combination of aspirin and Plavix and I gave her a loading dose of Plavix and she is already on aspirin at home. I had ordered a CT angiogram of the head and neck, but did not do it. She already got dye with a CT chest and does not look like there is any emergency to do it because it is unlikely to change any treatment. Even if the basilar artery is blocked, the treatment is still conservative till the patient is having symptoms. I will try to see what happened to the CT angiogram, but I may do it first thing in the morning. 2. [place] test on her would have been MRI. Pacemaker was put in recently and that it may very well be compatible with MRI, but that is still has to be set up. She had been admitted to this institution in 2017 and I reviewed those records and it looks like she had an MRI and MRA at that time and they were unremarkable. I discussed with her that we can do the CT angiogram tonight or first thing in the morning and I discussed the advantages and disadvantages of both of them; I am trying to find out why it was not done and the patient wants to get it done in the morning and we might do it because it is unlikely to change any treatment, but I did give her Plavix and she is already on aspirin. Dr. Suero will follow up this patient with you tomorrow and I will make some more inquiry because they may not have done this just because they do want to give the dye twice if she can avoid it. Thank you very much for this referral and if you have any question, please feel free to contact me. <ELECTRONICALLY SIGNED> By: Cassius Barba MD 11/29/19 1142 2058 [id number] Barba MD /nt
[2019-11-29 12:12] VITALS: BP 147/98
--- NOTE | 2019-11-29 13:15 | 2DMMODE ---
[place] [address] 2 D/M-MODE ECHOCARDIOGRAM Name: ALTA MORA Room: [address] Romeo Barcenas#: [id number] Admission: 11/28/19 Attend Phys: Pasquale Jones, Discharge: Date of : 37 Date of Service: 11/29/19 1315 Report #: [id number] THIS REPORT FOR: cc: Tam Carey John E. DO Holkins,Tam Prado MD [facility] ~ APPROVED REPORT Study performed: 11/29/2019 09:40:19 EXAM: Comprehensive 2D, Doppler, and color-flow Echocardiogram Patient Location: In-Patient Room #: [facility] Status: routine BSA: 1.86 HR: 79 bpm BP: 153/83 mmHg Rhythm: NSR Other Information Study Quality: Good Indications CVA/TIA Echo Enhancing Agent Indication: Rule out Shunt Agent(s) / Amount(s) Used: Agitated Saline 10 cc 2D Dimensions IVSd: 11.46 (7-11mm) LVOT Diam: 18.62 (18-24mm) LVDd: 47.62 mm PWd: 10.80 (7-11mm) Ascending Ao: 25.83 (22-36mm) LVDs: 25.34 (25-40mm) Aortic Root: 27.51 mm Volumes Left Atrial Volume (Systole) LA ESV Index: 18.20 mL/m2 Aortic Valve AoV Peak Jacob.: 1.03 m/s AO Peak Gr.: 4.27 mmHg LVOT Max P.99 mmHg AO Mean Gr.: 2.60 mmHg LVOT Mean P.40 [place] [address] 2 D/M-MODE ECHOCARDIOGRAM Name: ALTA MORA Room: [address] MCarriRCarri#: [id number] Admission: 11/28/19 Attend Phys: Pasquale Jones, Discharge: Date of : 37 Date of Service: 11/29/19 1315 Report #: [id number] LVOT Max V: 0.86 m/s AO V2 VTI: 24.25 cm LVOT Mean V: 0.54 m/s JULIA (VTI): 2.28 cm2 LVOT V1 VTI: 20.30 cm Mitral Valve E/A Ratio: 0.72 MV Decel. Time: 236.20 ms MV E Max Jacob.: 0.75 m/s MV PHT: 68.50 ms MVA (PHT): 3.21 cm2 TDI E/Lateral E': 10.71 E/Medial E': 10.71 Medial E' Jacob.: 0.07 m/s Lateral E' Jacob.: 0.07 m/s Pulmonary Valve PV Peak Jacob.: 1.08 m/s PV Peak Gr.: 4.68 mmHg Left Ventricle The left ventricle is normal size. There is normal LV segmental wall motion. There is normal left ventricular wall thickness. Left ventricular systolic function is normal. The left ventricular ejection fraction is within the normal range. LVEF is 55-60%. Grade I - abnormal relaxation pattern. Right Ventricle The right ventricle is normal size. The right ventricular systolic function is normal. Pacemaker lead is present in the right ventricle. Atria The left atrium size is normal. The interatrial septum is intact with no evidence for an atrial septal defect. The right atrium size is normal. Aortic Valve The aortic valve is normal in structure. No aortic regurgitation is present. There is no aortic valvular stenosis. Mitral Valve Mild mitral annular calcification. Trace mitral regurgitation. No evidence of mitral valve stenosis. Tricuspid Valve The tricuspid valve is normal in structure. Unable to assess PA pressure. Trace [place] [address] 2 D/M-MODE ECHOCARDIOGRAM Name: ALTA MORA Room: [address] Romeo MCarriRCarri#: [id number] Admission: 11/28/19 Attend Phys: Pasquale Jones, Discharge: Date of : 37 Date of Service: 11/29/19 1315 Report #: [id number] Pulmonic Valve The pulmonary valve is normal in structure. There is no pulmonic valvular regurgitation. Great Vessels The aortic root is normal in size. IVC is normal in size and collapses >50% with inspiration. Pericardium There is no pericardial effusion. <Conclusion> The left ventricle is normal size. There is normal left ventricular wall thickness. Left ventricular systolic function is normal. The left ventricular ejection fraction is within the normal range. LVEF is 55-60%. Grade I - abnormal relaxation pattern. The right ventricle is normal size. The left atrium size is normal. The aortic valve is normal in structure. Mild mitral annular calcification. Trace mitral regurgitation. The tricuspid valve is normal in structure. IVC is normal in size and collapses >50% with inspiration. There is no pericardial effusion. There is normal LV segmental wall motion. Pacemaker lead is present in the right ventricle. The interatrial septum is intact with no evidence for an atrial septal defect. <ELECTRONICALLY SIGNED> By: Tam Bass MD, FACC 11/29/19 1315 14 Tam Bass MD, FACC /INF
[2019-11-29 14:18] VITALS: BP 147/98
--- NOTE | 2019-11-29 14:51 | NUR ---
RECEIVED REPORT. ASSUMED CARE OF PT AROUND 0730. PT A&O X4,. FORGETFUL AT TIMES. 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 AM ASSESSMENT AND VITALS COMPLETED CHARTED. MEDS PER EMAR. PT REPORTS DIZZINESS IS MUCH BETTER. NO FURTHER S/S OF STROKE. NEURO CHECKS CHARTED. DR JOE IN TO SEE PT. CTA HEAD CANCELED. NEURO SIGNED OFF, SEE REPORT. ECHO NORMAL. PT AND OT SIGNED OFF. DISCHARGE ORDERS RECEIVED. DISCHARGE COMPLETED CHARTED. DISCHARGE SUMMARY AND CARE NOTES GONE OVER WITH PT AND CHILD, BOTH COMMUNICATE UNDERSTANDING. STOKE EDUCATION GIVEN BY CARDIAC REHAB NURSE. PT AWARE TO LIQUID COMPOUNDER PRESCRIPTIONS FROM PHARMACY. 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 ALL BELONGINGS GATHERED AND LEAVING WITH PT. PT GETTING DRESSED NOW WITH ASSISTNACE. WCTM TILL PT LEAVES UNIT.
--- NOTE | 2019-11-29 15:00 | NUR ---
pt left unit in [place] with nursing staff. pt left hospital in car with family.
== END 2019-11-29 15:00 | disposition home or self-care (01) ==
LOC: M.ERS 08:15 → M.TBA-ER 10:21 → M.2W 14:42
PROVIDERS: Family Medicine; Psychiatry & Neurology Neuromuscular Medicine; ADMIT Internal Medicine; ATTEND Internal Medicine
DX: I63.81 Other cerebral infarction due to occlusion or stenosis of small artery (principal); I10 Essential (primary) hypertension; M06.9 Rheumatoid arthritis, unspecified; D68.59 Other primary thrombophilia; R42 Dizziness and giddiness; F17.210 Nicotine dependence, cigarettes, uncomplicated

== ENCOUNTER 2019-12-05 16:43 | Observation (INO) | payer MEDICARE ==
[~2019-12-05] VITALS: Ht 170.2 cm; Wt 75.5 kg
[~2019-12-05 16:43] MED LIST changes: +ANORO ELLIPTA1 EACH INH; +CLOPIDOGREL75 MG PO; +LIPITOR40 MG PO
[2019-12-05 16:44] VITALS: BP 199/119
[2019-12-05 17:35] LABS: ABSOLUTE BASOPHILS 0.1 thou/uL (0.0-0.2); ABSOLUTE EOSINOPHILS 0.1 thou/uL (0.0-0.7); ABSOLUTE LYMPHOCYTES 1.6 thou/uL (0.8-5.3); ABSOLUTE MONOCYTES 0.6 thou/uL (0.0-1.2); ABSOLUTE NEUTROPHILS 8.9 thou/uL (1.6-8.1); BASOPHILS 1.1 %; EOSINOPHILS 1.2 %; HEMATOCRIT 39.7 % (37.0-47.0); HEMOGLOBIN 13.3 gm/dL (12.0-15.0); LYMPHOCYTES 13.8 %; MCH 29.8 pg (26.0-34.0); MCHC 33.4 g/dL (28.0-37.0); MCV 89.2 fL (80.0-100.0); MONOCYTES 5.7 %; MPV 8.2 fl. (7.2-11.1); NUCLEATED RBCS 0 /100WBC; PLATELET COUNT* 220 thou/uL (150-400); POLYS 78.2 %; RBC 4.46 mil/uL (4.20-5.00); RDW-CV 15.5 % (10.5-14.5); WBC 11.4 thou/uL (4.0-11.0)
[2019-12-05 17:44] LABS: CALCIUM 8.3 mg/dL (8.5-10.1); POTASSIUM 4.4 mmol/L (3.5-5.1)
[2019-12-05 17:48] LABS: APTT 24.2 Seconds (25.0-31.3); PROTIME 10.2 Seconds (9.20-11.50)
[2019-12-05 17:55] LABS: ALBUMIN 3.4 g/dL (3.4-5.0); TOTAL BILIRUBIN 0.3 mg/dL (<0.1-1.0); TOTAL PROTEIN 8.1 g/dL (6.4-8.2)
[2019-12-05 22:55] VITALS: BP 168/68
[2019-12-05 23:56] VITALS: BP 187/84
[2019-12-06 04:00] VITALS: BP 146/74
[2019-12-06 08:00] VITALS: BP 156/85
--- NOTE | 2019-12-06 10:30 | EKG ---
[place] [address] ELECTROCARDIOGRAM REPORT Name: ALTA MORA Room: [address]R.#: [id number] Admission: 12/05/19 Attend Phys: Vesta Stevens, Discharge: Date of : 36 Date of Service: 12/05/19 1649 Report #: [id number] THIS REPORT FOR: //name// [facility] ED Test Date: 2019-12-05 Test Time: 16:49:12 Pat Name: ALTA MORA Department: Room: [facility] Gender: F Er Manager: MINDY : 1935 Requested By: Jonelle Chase Order Number: [id number] MD: Jaxson Gregg Measurements Intervals [place] Rate: 75 P: 43 NH: 178 QRS: 40 QRSD: 83 T: 57 QT: 456 QTc: 510 Interpretive Statements Sinus rhythm with atrial paced beats Atrial premature complex wandering baseline Probable left atrial enlargement Prolonged QT interval Compared to ECG 11/28/2019 10:20:43 Prolonged QT interval now present atrial paced beats now noted Electronically Signed On 12-06-2019 10:30:34 CDT by Jaxson Gregg [email or web address] <ELECTRONICALLY SIGNED> By: Jaxson Gregg MD, [facility] 12/06/19 1030 1649 1649 Jaxson Gregg MD, [facility] /EPI
[2019-12-06 12:19] VITALS: BP 134/85
--- NOTE | 2019-12-06 14:43 | CON ---
[address] [address] CONSULTATION Name: ALTA MORA Room: [address] Narinder#: [id number] Admission: 12/05/19 Attend Phys: Vesta Stevens MD Discharge: Date of : 36 Report #: [id number] THIS REPORT FOR: //name// cc: Tam Carey John E. DO THIS REPORT FOR: //name// CC: Tam Burns DATE OF SERVICE: 12/06/2019 CARDIOLOGY CONSULTATION HISTORY OF PRESENT ILLNESS: The patient is an 84-year-old single white female who I was asked to see in the hospital today after she complained of feeling dizzy. The patient has an extensive past medical history. She apparently presented last January after an episode of syncope. She was noted to have evidence of sick sinus syndrome with sinus pauses. My partner, Dr. Jose implanted a dual-chamber Biotronik pacemaker last January. She has had no further syncopal spells since that time. However, she was actually admitted to [place] on 11/28/2019. She came to the Emergency Room complaining of nausea, lightheadedness, tingling, and headache. She was seen by Neurology. 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 She was seen by Neurology and told to take aspirin and clopidogrel and started on a statin drug. Since she went home, she was not very active. She has had no bleeding. She was brought back to the Emergency Room yesterday by ambulance. She complained of her heart racing. She felt lightheaded. She had a headache. She has had no bleeding. She denied any chest pain, shortness of breath, syncope, fever or cough. I was asked to see her for further evaluation and treatment. PAST MEDICAL HISTORY: She had previous cholecystectomy, elbow surgery. She has a history of hypertension, rheumatoid arthritis and she used to see a family advocate, and hyperlipidemia. MEDICATIONS: Include Plavix, aspirin, Lipitor, losartan, and cholestyramine. ALLERGIES: SHE HAS A PREVIOUS INTOLERANCE TO CODEINE AND SULFA. FAMILY HISTORY: Negative for heart disease. SOCIAL HISTORY: She is , lives in [place]. She smokes half pack of cigarettes a day. [place] [address] CONSULTATION Name: ALTA MORA [address]: [address] [id number] Admission: 12/05/19 Attend Phys: Vesta Stevens MD Discharge: Date of : 36 Report #: [id number] REVIEW OF SYSTEMS: She has no previous history of asthma, liver disease, or kidney disease. She had a basal cell carcinoma removed in the past. No psychiatric illness. For her rheumatoid arthritis, she was on methotrexate in the past. She has injections in her low back. PHYSICAL EXAMINATION: GENERAL: Revealed an elderly female lying in bed. She appeared in no distress. VITAL SIGNS: She had a blood pressure of 140/70 and pulse is 70. She is afebrile. HEENT: She was anicteric. Conjunctivae are pink. Mucous membranes are moist. NECK: Veins nondistended. No carotid bruits. Neck supple. CHEST: Clear to auscultation. CARDIOVASCULAR: Regular rate and rhythm. ABDOMEN: Soft. EXTREMITIES: Had no edema. Dorsalis pedis pulses are 2+ bilaterally. SKIN: Warm and dry. NEUROLOGIC: Nonfocal. PSYCHIATRIC: Mood is appropriate. RADIOLOGIC DATA: Her ECG, she had atrial paced rhythm. Her workup, she had an echocardiogram performed 10 days ago when she had a stroke that showed ejection fraction of 60%. There was no evidence of a shunt by bubble study. Her workup, she had a chest x-ray in the Emergency Room yesterday that showed hyperinflated lung perry. She had a CTA of the neck that showed stenosed left subclavian artery, minimal plaque into the carotid arteries, and thyroid nodule. LABORATORY DATA: She had lab work, sodium 139, creatinine 1.0, and troponin 0.06. Her white blood cell count was 11.4 and hemoglobin 13.3. IMPRESSION AND RECOMMENDATIONS: 1. Dizziness. Reason unclear. The patient was not orthostatic. Normal pacemaker function. Possible vertigo. 2. Recent stroke. The patient is on aspirin and Plavix. 3. Hyperlipidemia. The patient is on a statin drug. 4. Hypertension. The patient is on an ARB. 5. History of sick sinus syndrome. Normal dual chamber pacemaker function. 6. History of rheumatoid arthritis. The patient is no longer on methotrexate. 7. Tobacco abuse. 8. Chronic bronchitis. <ELECTRONICALLY SIGNED> By: Jaxson Gregg MD, FACC 12/06/19 1443 1106 [id number] Gregg MD, FAC /nt
[2019-12-06 16:15] VITALS: BP 153/86
[2019-12-06 20:00] VITALS: BP 172/76
[2019-12-07] VITALS: BP 137/74
[2019-12-07 04:40] VITALS: BP 103/63
[2019-12-07 06:06] LABS: ABSOLUTE BASOPHILS 0.1 thou/uL (0.0-0.2); ABSOLUTE EOSINOPHILS 0.2 thou/uL (0.0-0.7); ABSOLUTE LYMPHOCYTES 1.7 thou/uL (0.8-5.3); ABSOLUTE MONOCYTES 0.5 thou/uL (0.0-1.2); ABSOLUTE NEUTROPHILS 5.6 thou/uL (1.6-8.1); BASOPHILS 1.3 %; EOSINOPHILS 2.2 %; HEMATOCRIT 35.9 % (37.0-47.0); HEMOGLOBIN 12.1 gm/dL (12.0-15.0); LYMPHOCYTES 20.8 %; MCH 29.5 pg (26.0-34.0); MCHC 33.7 g/dL (28.0-37.0); MCV 87.6 fL (80.0-100.0); MONOCYTES 6.5 %; NUCLEATED RBCS 0 /100WBC; PLATELET COUNT* 201 thou/uL (150-400); POLYS 69.2 %; RDW-CV 15.3 % (10.5-14.5)
[2019-12-07 06:38] LABS: CALCIUM 8.1 mg/dL (8.5-10.1); CREATININE 0.9 mg/dL (0.6-1.3); POTASSIUM 4.1 mmol/L (3.5-5.1)
[2019-12-07 08:07] VITALS: BP 148/88
[2019-12-07] MEDS ORDERED: COZAAR 25 MG TA25 M1 PO (11:06)
[2019-12-07 11:18] VITALS: BP 148/88
== END 2019-12-07 12:12 | disposition home or self-care (01) ==
LOC: M.ERS 16:43 → M.TBA-ER 20:52 → M.2W 23:24
PROVIDERS: Internal Medicine; Personal Emergency Response Attendant; ADMIT Internal Medicine; ATTEND Internal Medicine
DX: R42 Dizziness and giddiness (principal); R00.2 Palpitations; I10 Essential (primary) hypertension; Z86.73 Personal history of transient ischemic attack (TIA), and cerebral infarction without residual deficits; M19.90 Unspecified osteoarthritis, unspecified site; Z86.718 Personal history of other venous thrombosis and embolism; Z79.01 Long term (current) use of anticoagulants; M06.9 Rheumatoid arthritis, unspecified; F17.210 Nicotine dependence, cigarettes, uncomplicated

== ENCOUNTER 2019-12-15 10:01 | Emergency (ER) | payer MEDICARE ==
[~2019-12-15] VITALS: Ht 170.2 cm; Wt 74.8 kg
[2019-12-15 13:21] VITALS: BP 166/98
== END 2019-12-15 13:22 | disposition home or self-care (01) ==
LOC: M.ERS 10:01
DX: R22.31 Localized swelling, mass and lump, right upper limb (principal); I10 Essential (primary) hypertension; M06.9 Rheumatoid arthritis, unspecified; F17.210 Nicotine dependence, cigarettes, uncomplicated; Z90.49 Acquired absence of other specified parts of digestive tract; Z86.718 Personal history of other venous thrombosis and embolism; Z86.711 Personal history of pulmonary embolism; Z95.0 Presence of cardiac pacemaker; Z91.040 Latex allergy status; Z88.2 Allergy status to sulfonamides; Z88.6 Allergy status to analgesic agent; Z88.8 Allergy status to other drugs, medicaments and biological substances

== ENCOUNTER → 2020-01-07 | Outpatient (CLI) | payer MEDICARE | LOC: M.ULTRA 12-24 14:00 → M.LAB 11:42 → M.ULTRA 13:00 | PROVIDERS: ATTEND Nurse Practitioner Family | DX: E04.2 Nontoxic multinodular goiter (principal); K57.30 Diverticulosis of large intestine without perforation or abscess without bleeding; I63.9 Cerebral infarction, unspecified; I70.0 Atherosclerosis of aorta; N28.1 Cyst of kidney, acquired; N85.8 Other specified noninflammatory disorders of uterus; D25.9 Leiomyoma of uterus, unspecified; K59.00 Constipation, unspecified; R11.2 Nausea with vomiting, unspecified; Z90.49 Acquired absence of other specified parts of digestive tract ==

== ENCOUNTER 2020-11-20 18:10 | Inpatient (IN) | payer MEDICARE ==
[~2020-11-20] VITALS: Ht 170.2 cm; Wt 71.8 kg
[2020-11-20 18:15] VITALS: BP 149/47
[2020-11-20 19:49] LABS: ABSOLUTE BASOPHILS 0.1 thou/uL (0.0-0.2); ABSOLUTE EOSINOPHILS 0.1 thou/uL (0.0-0.7); ABSOLUTE LYMPHOCYTES 1.2 thou/uL (0.8-5.3); ABSOLUTE MONOCYTES 0.2 thou/uL (0.0-1.2); ABSOLUTE NEUTROPHILS 7.7 thou/uL (1.6-8.1); BASOPHILS 1.3 %; EOSINOPHILS 0.6 %; HEMOGLOBIN 12.9 gm/dL (12.0-15.0); LYMPHOCYTES 12.5 %; MCH 29.1 pg (26.0-34.0); MCHC 33.9 g/dL (28.0-37.0); MCV 85.9 fL (80.0-100.0); MONOCYTES 2.2 %; MPV 7.8 fl. (7.2-11.1); NUCLEATED RBCS 0 /100WBC; PLATELET COUNT* 238 thou/uL (150-400); POLYS 83.4 %; RBC 4.42 mil/uL (4.20-5.00); RDW-CV 16.7 % (10.5-14.5); WBC 9.3 thou/uL (4.0-11.0)
[2020-11-20 19:49] LABS: URINE BILIRUBIN NEGATIVE (Negative); URINE BLOOD NEGATIVE (Negative); URINE COLOR YELLOW; URINE GLUCOSE-RANDOM NEGATIVE (Negative); URINE KETONES 1+ (Negative); URINE LEUKOCYTES-REFLEX TRACE (Negative); URINE NITRITE-REFLEX NEGATIVE (Negative); URINE PROTEIN NEGATIVE (Negative); URINE SPECIFIC GRAVITY 1.025 (1.005-1.030); URINE UROBILINOGEN 0.2 E.U./dl (0.2-1.0)
[2020-11-20 19:50] LABS: URINE CLARITY HAZY
[2020-11-20 19:56] LABS: SQUAMOUS 0-3 Few /LPF (0-3); URINE WBC-REFLEX 0-5 Rare /HPF (0-5)
[2020-11-20 19:57] LABS: BACTERIA-REFLEX None Seen /HPF (None Seen); CASTS None Seen /LPF (None Seen); CRYSTALS None Seen /LPF (None Seen); URINE RBC None Seen /HPF (0-2)
[2020-11-20 19:59] LABS: CALCIUM 8.8 mg/dL (8.5-10.1); CREATININE 0.8 mg/dL (0.6-1.3); POTASSIUM 4.2 mmol/L (3.5-5.1)
[2020-11-20 20:10] LABS: ALBUMIN 3.7 g/dL (3.4-5.0); TOTAL BILIRUBIN 0.4 mg/dL (<0.1-1.0); TOTAL PROTEIN 8.6 g/dL (6.4-8.2)
[2020-11-20 23:33] VITALS: BP 132/65
[2020-11-20 23:45] VITALS: BP 160/88
--- NOTE | 2020-11-21 00:27 | NUR ---
PT ADMITTED TO ROOM 210 AT 2345 FOR DIAGNOSIS OF VERTIGO. PT ASSISTED FROM GURNEY TO BED WITH STANDBY ASSISTANCE. PT DENIED VERTIGO AT THAT TIME. PT ORIENTED TO CALL LIGHT, ROOM AND BED CONTROLS. PT DEMONSTRATES PROPER USE OF CALL LIGHT AND CONTRACTS TO CALL STAFF BEFORE GETTING UP.
[2020-11-21 05:08] VITALS: BP 141/73
--- NOTE | 2020-11-21 07:25 | NUR ---
CHANGE OF SHIFT BEDSIDE REPORT GIVEN PATENT SEEN AT BEDSIDE, IN BED ASLEEP ASSUMED PATIENT CARE
[2020-11-21 08:00] VITALS: BP 105/55
[2020-11-21 11:07] LABS: CHOLESTEROL 129 mg/dL (<200); HDL CHOLESTEROL 54 mg/dL (>40); LDL CHOLESTEROL 65 mg/dL (<100); TC:HDL 2.4 Ratio (Not establshd); TRIGLYCERIDE 51 mg/dL (<150); VLDL 10 mg/dL (<40)
[2020-11-21 11:16] LABS: SERUM ASSESSMENT Clear
[2020-11-21 11:34] LABS: ALBUMIN 2.8 g/dL (3.4-5.0); CALCIUM 8.3 mg/dL (8.5-10.1); CREATININE 0.8 mg/dL (0.6-1.3); POTASSIUM 4.4 mmol/L (3.5-5.1); TOTAL BILIRUBIN 0.2 mg/dL (<0.1-1.0); TOTAL PROTEIN 6.3 g/dL (6.4-8.2)
[2020-11-21 12:00] VITALS: BP 118/82
[2020-11-21 16:00] VITALS: BP 145/82
[2020-11-21 17:40] VITALS: BP 118/82
--- NOTE | 2020-11-21 18:12 | NUR ---
patient discharged to home iv and heart monitor removed personal belongigns returned dc instruction given patient assisted out via wc to waiting car
[2020-11-22 05:36] LABS: GLYCOHEMOGLOBIN (HGB A1C) 6.3 % (4.8-5.6)
--- NOTE | 2020-11-22 08:51 | NUR ---
PLEASE NOTE PT WAS DISCHARGED FROM HOSPITAL BEFORE P.T. EVAL AND TREAT COULD BE INITIATED.
--- NOTE | 2020-11-22 11:54 | CON ---
[address] [address] CONSULTATION Name: ALTA MORA Lillian Room: [address] IN M.R.#: [id number] Admission: 11/21/20 Attend Phys: Anuj Delgado MD Discharge: 11/21/20 Date of : 36 Report #: [id number] THIS REPORT FOR: cc: Tam Carey John E. DO Blick, David R. MD [facility] ~ DOC #: [id number] cc: DO Jaxson Munoz MD [facility] DATE OF CONSULTATION: 11/21/2020 CARDIOLOGY CONSULTATION HISTORY OF PRESENT ILLNESS: The patient is an 85-year-old single white female who I was asked to see in the hospital after she complained of lightheadedness. The patient initially presented in 2019 here at [place] with a syncopal spell. She was found to have evidence of sick sinus syndrome and Dr. Jose implanted a Biotronik pacemaker at that time. She has had no further syncope since that time. She last had her pacemaker checked in my office in July of this year. She was doing well until yesterday. She was having lunch. She then drove home. When she got home, she felt diaphoretic, she actually vomited and felt lightheaded. Family members brought her to [place] and she is admitted. She denies any chest pain. She apparently had a stress test in the past. She does get short of breath when she exerts herself and has a chronic cough, but no edema. She denies any recent fever, vomiting blood or diarrhea. She has a history of a tremor apparently saw a neurologist in [facility] in the past and was told that she does not have Parkinson's. She is not very active at this time. PAST MEDICAL HISTORY: Cholecystectomy, appendectomy, hypertension, hyperlipidemia. MEDICATIONS: Include losartan, Lipitor, Voltaren for rheumatoid arthritis. She used to see a guest relation officer. She uses an inhaler for COPD. ALLERGIES: SHE HAS AN ALLERGY TO SULFA DRUGS. FAMILY HISTORY: Negative for heart disease. SOCIAL HISTORY: She is , lives by herself in [place]. Smokes a pack of cigarettes a day. No alcohol abuse. REVIEW OF SYSTEMS: No history of stroke. She does have COPD. No history of liver disease, kidney disease, cancer, psychiatric illness, [place] [address] CONSULTATION Name: ALTA MORA Room: [address]#: [id number] Admission: 11/21/20 Attend Phys: Anuj Delgado MD Discharge: 11/21/20 Date of : 37 Report #: [id number] condition. PHYSICAL EXAMINATION: GENERAL: Revealed an elderly female who appeared in no distress. VITAL SIGNS: She had a blood pressure of 130/60, pulse is 80. She is afebrile. HEENT: She was anicteric. Conjunctivae pink. Mucosa is moist. NECK: Veins nondistended. Left carotid bruit is heard. CHEST: Revealed decreased breath sounds bilaterally. HEART: Regular rate and rhythm. No murmur. ABDOMEN: Soft. EXTREMITIES: Had no edema. Dorsalis pedis pulse 1+ bilaterally. SKIN: Cool and dry. NEUROLOGIC: Nonfocal. She does have a resting tremor. LABORATORY DATA: ECG on admission showed a sinus rhythm with no ST or T-wave changes noted. On the monitor, the patient was noted to have occasional PACs and occasionally has atrial paced beats. Her workup, she actually had an echocardiogram done in 11/2019, that showed ejection fraction of 60% and there was no evidence of shunt on bubble study. She had CTA of the neck last night that showed plaque formation involving the ascending aorta, left subclavian artery, otherwise unremarkable. Her lab work, sodium 142, potassium 4.4, creatinine 0.8, albumin 2.8. Troponins all less than 0.06. Cholesterol 129, triglyceride 51. I 2019, TSH was 3.6. Hemoglobin 12.9. Her COVID antigen stat test was negative. Previous chest x-ray in 2019 showed hyperinflated lung perry. IMPRESSION AND RECOMMENDATIONS: 1. Previous implantation of pacemaker. Pacemaker appears to be functioning normally. Pacemaker in backup mode at 60 beats per minute. 2. Lightheadedness. Possible vasovagal. 3. Familial tremor. 4. Hypertension. The patient is on ARB. 5. Hyperlipidemia. The patient is on a statin drug. 6. Tobacco abuse. 7. Chronic bronchitis. 8. History of Rheumatoid arthritis. 9. Dizziness. Possible vertigo. Recommend no further cardiac evaluation. Jaxson Gregg MD [facility] DRGwen/SUZY/SOT [address] [address] CONSULTATION Name: ALTA MORA Room: [address] DIS IN M.R.#: [id number] Admission: 11/21/20 Attend Phys: Anuj Delgado MD Discharge: 11/21/20 Date of : 37 Report #: [id number] <ELECTRONICALLY SIGNED> By: Jaxson Gregg MD, FACC 11/22/20 1154 1158 [id number] Gregg MD, FAC /nt
--- NOTE | 2020-11-24 16:37 | EKG ---
[place] [address] ELECTROCARDIOGRAM REPORT Name: ALTA MORA Room: [address] DIS IN M.R.#: [id number] Admission: 11/21/20 Attend Phys: Anuj Delgado, Discharge: 11/21/20 Date of : 37 Date of Service: 11/20/20 182 Report #: [id number] THIS REPORT FOR: //name// [facility] ED Test Date: 2020-11-20 Test Time: 18:22:51 Pat Name: ALTA MORA Department: Room: [address] Gender: F Superintendent Gas Distribution: TDS : 1935 Requested By: Anuj Delgado Order Number: [id number] Reading MD: Smith Jose Measurements Intervals [place] Rate: 88 P: 72 WV: 193 QRS: 47 QRSD: 90 T: 47 QT: 377 QTc: 457 Interpretive Statements Sinus rhythm Atrial premature complex Compared to ECG 12/05/2019 16:49:12 Atrial-paced complex(es) or rhythm no longer present Prolonged QT interval no longer present Electronically Signed On 11-24-2020 16:37:35 CDT by Smith Jose [email or web address] <ELECTRONICALLY SIGNED> By: Smith Jose MD, FAC 11/24/20 1637 182 182 Smith Jose MD, [facility] /EPI
== END 2020-11-21 18:15 | disposition home or self-care (01) | DRG 69 ==
LOC: M.ERS 18:10 → M.TBA-ER 21:32 → M.2W 23:59
PROVIDERS: Emergency Medicine; Internal Medicine; ADMIT Internal Medicine; ATTEND Internal Medicine
DX: G45.9 Transient cerebral ischemic attack, unspecified (principal); R55 Syncope and collapse; M06.9 Rheumatoid arthritis, unspecified; F17.210 Nicotine dependence, cigarettes, uncomplicated; E78.5 Hyperlipidemia, unspecified; I49.5 Sick sinus syndrome; I10 Essential (primary) hypertension; Z20.822 Contact with and (suspected) exposure to COVID-19; Z90.49 Acquired absence of other specified parts of digestive tract; Z86.718 Personal history of other venous thrombosis and embolism; Z86.711 Personal history of pulmonary embolism; Z95.0 Presence of cardiac pacemaker; Z79.82 Long term (current) use of aspirin; Z79.899 Other long term (current) drug therapy; Z88.2 Allergy status to sulfonamides; Z88.8 Allergy status to other drugs, medicaments and biological substances; Z91.040 Latex allergy status

== ENCOUNTER 2020-12-22 07:24 | Inpatient (IN) | payer MEDICARE ==
[~2020-12-22] VITALS: Ht 170.2 cm; Wt 70.3 kg
--- NOTE | ~2020-12-22 | CON ---
[address] [address] CONSULTATION Name: ALTA MORA Lillian Room: [address] IN M.R.#: [id number] Admission: 12/22/20 Attend Phys: Anuj Delgado MD Discharge: Date of : 37 Report #: [id number] THIS REPORT FOR: cc: Tam Carey John E. DO Biggs, F. Douglas MD [facility] ~ DATE OF CONSULTATION: 12/22/2020 CARDIOLOGY CONSULTATION HISTORY OF PRESENT ILLNESS: I was asked by Dr. Delgado to see this 85-year-old white female in cardiology consultation for evaluation and treatment of an elevated troponin. This lady is admitted with what seems to be a COPD exacerbation. She does have a long history of COPD. Her last episode requiring hospitalization was several years ago. She has continued to smoke, however. She began having increasing dyspnea on exertion beginning over a week ago. It was progressive. She did not have orthopnea or paroxysmal nocturnal dyspnea. She did not have edema. She has had a cough that has been progressive. It has not been productive, however. She has had wheezing, especially she says in her left lung. This is new. She did not have any chest pain or angina. She does not have a history of coronary disease. She has had a history of a pacemaker placement two years back by Dr. Jose for sick sinus syndrome. She does have a history of essential hypertension and hyperlipidemia and she has an abdominal aortic aneurysm. She is still smoking. She is not sure about a past medical history of coronary disease. PAST MEDICAL AND SURGICAL HISTORY: Does include rheumatoid arthritis and shingles. She has had bradycardia. She has had a DVT and a pulmonary embolus and an appendectomy. She has a history of a hypercoagulable state. She has had a cholecystectomy. HOME MEDICATIONS: Losartan 25 mg b.i.d. and atorvastatin 40 mg daily at bedtime. She is also apparently on aspirin 81 mg daily and Anoro Ellipta. SOCIAL HISTORY: She does smoke, but does not drink or use illegal drugs. She has a history of being , but her has apparently. ALLERGIES: SHE HAS ALLERGIES TO LATEX, ATENOLOL, CODEINE AND SULFA. FAMILY HISTORY: Noncontributory. REVIEW OF SYSTEMS: Negative for some 40 different complaints in 14 different system categories. Please see our review of system form for details and negatives [place] [address] CONSULTATION Name: ALTA MORA Room: [address]#: [id number] Admission: 12/22/20 Attend Phys: Anuj Delgado MD Discharge: Date of : 37 Report #: [id number] PHYSICAL EXAMINATION: GENERAL: She presented as a well-developed, well-nourished white female who is on oxygen and appeared only mildly short of breath. VITAL SIGNS: Her pulse was 86 and regular. Blood pressure was 128/80, respirations 14 and regular, temperature is 97.7. HEENT: Atraumatic. Eyes clear. NECK: Supple. There is no jugular venous distention or hepatojugular reflux. Thyroid is not enlarged. There is no adenopathy. SKIN: Warm and dry. Mucous membranes are moist. LUNGS: Revealed decreased breath sounds bilaterally with an increased expiratory phase. There were wheezes and rhonchi in the left lung. HEART: Revealed normal first and second heart sound. There is a soft S4. There is no S3. There are no murmurs, rubs, thrills, heaves or gallops. PMI is not displaced. ABDOMEN: Soft, flat, nontender, no palpable masses, no organomegaly. EXTREMITIES: Reveal no cyanosis, clubbing or edema. NEUROLOGIC: The patient mentated normally, talked normally and moved all extremities normally.. LABORATORY DATA: Her white count was 13,200, hemoglobin and hematocrit were normal. Her troponin was 0.14. Her NT-proBNP was 1255. IMAGING: Chest x-ray showed no acute cardiopulmonary process detected. COPD and chronic interstitial lung disease was present. Her EKG shows normal sinus rhythm. There were occasional atrial premature beats. Otherwise, it was unremarkable. There were no significant ST-T abnormalities either elevation or depression. Note, this lady is still smoking. She was told no uncertain terms by me today to stop smoking today. IMPRESSION: 1. Elevated troponin that is likely secondary to the stress of her chronic obstructive pulmonary disease exacerbation rather than an acute myocardial infarction. The elevation is minimal. 2. Chronic obstructive pulmonary disease exacerbation. 3. Elevated BNP that is likely of not much help in an 85-year-old woman with a chronic obstructive pulmonary disease exacerbation. I doubt she has heart failure. 4. Essential hypertension with fair control. 5. Status post pacemaker. 6. Hyperlipidemia. 7. History of abdominal aortic aneurysm. 8. Smoking. [address] [address] CONSULTATION Name: ALTA MORA Room: [address] IN M.R.#: [id number] Admission: 12/22/20 Attend Phys: Anuj Delgado MD Discharge: Date of : 37 Report #: [id number] RECOMMENDATION: I would get repeat troponins to see what the elevation is. I do note that she has not had elevated troponins in the past on previous admissions. I would get an echo as well as a fasting lipid profile, CPK and LFTs and an abdominal ultrasound. I would repeat the BNP as well. Thank you very much for asking me to see the patient. If you have any questions, please feel free to contact me. By: [id number]. Darian Teran MD, FACC /nt
[2020-12-22 07:24] VITALS: BP 149/88
[2020-12-22 08:05] LABS: ABSOLUTE BASOPHILS 0.1 thou/uL (0.0-0.2); ABSOLUTE EOSINOPHILS 3.5 thou/uL (0.0-0.7); ABSOLUTE LYMPHOCYTES 0.8 thou/uL (0.8-5.3); ABSOLUTE MONOCYTES 0.6 thou/uL (0.0-1.2); ABSOLUTE NEUTROPHILS 8.3 thou/uL (1.6-8.1); BASOPHILS 0.4 %; EOSINOPHILS 26.5 %; HEMATOCRIT 40.3 % (37.0-47.0); HEMOGLOBIN 13.3 gm/dL (12.0-15.0); LYMPHOCYTES 5.7 %; MCH 28.8 pg (26.0-34.0); MCHC 32.9 g/dL (28.0-37.0); MCV 87.7 fL (80.0-100.0); MONOCYTES 4.6 %; NUCLEATED RBCS 0 /100WBC; PLATELET COUNT* 192 thou/uL (150-400); POLYS 62.8 %; RDW-CV 16.2 % (10.5-14.5); WBC 13.2 thou/uL (4.0-11.0)
[2020-12-22 08:18] LABS: CALCIUM 8.2 mg/dL (8.5-10.1); POTASSIUM 4.3 mmol/L (3.5-5.1)
[2020-12-22 08:34] LABS: MAGNESIUM 1.8 mg/dL (1.8-2.4); TOTAL BILIRUBIN 0.4 mg/dL (<0.1-1.0); TOTAL PROTEIN 7.6 g/dL (6.4-8.2)
[2020-12-22 08:43] LABS: BE 2.3 mmol/L (-2 to +3); pH 7.425 (7.340-7.450)
[2020-12-22 08:44] LABS: PO2 51.3 mmHg (75.0-100.0)
--- NOTE | 2020-12-22 09:34 | EKG ---
[place] [address] ELECTROCARDIOGRAM REPORT Name: ALTA MORA Room: [facility]9 ADM IN .R.#: [id number] Admission: 12/22/20 Attend Phys: Anuj Delgado, Discharge: Date of : 37 Date of Service: 12/22/20 0743 Report #: [id number] THIS REPORT FOR: //name// [facility] ED Test Date: 2020-12-22 Test Time: 07:43:35 Pat Name: ALTA MORA Department: Room: [facility] Gender: F Solutions Analyst: MELE : 1935 Requested By: David Duckworth Order Number: [id number] MD: Darian Teran Measurements Intervals [place] Rate: 92 P: 75 FL: 179 QRS: 35 QRSD: 84 T: 52 QT: 371 QTc: 459 Interpretive Statements Sinus rhythm Atrial premature complexes Baseline wander in lead(s) V2 Compared to ECG 11/20/2020 18:22:51 No significant changes Electronically Signed On 12-22-2020 9:33:48 CDT by Darian Teran [email or web address] <ELECTRONICALLY SIGNED> By: Elizabeth Teran MD, [facility] 12/22/20 0933 0743 Elizabeth Teran MD, [facility] /EPI
[2020-12-22 10:16] VITALS: BP 128/80
[2020-12-22 10:30] VITALS: BP 147/87
[2020-12-22] MEDS ORDERED: CHOLESTYRAMINE R5 GM PO (13:28)
[2020-12-22] MEDS ORDERED: METFORMIN HCL500 M3 PO (13:31)
[2020-12-22] MEDS ORDERED: VOLTAREN 50MG T50 MG PO (13:32)
[2020-12-22] MEDS ORDERED: ASPIR-TRIN325 MG PO (13:39)
--- NOTE | 2020-12-22 16:49 | 2DMMODE ---
[place] [address] 2 D/M-MODE ECHOCARDIOGRAM Name: ALTA MORA Room: [address] IN R#: [id number] Admission: 12/22/20 Attend Phys: Anuj Delgado, Discharge: Date of : 37 Date of Service: 12/22/20 1649 Report #: [id number] THIS REPORT FOR: cc: Tam Carey John E. DO Biggs, F. Douglas MD [facility] ~ APPROVED REPORT Study performed: 12/22/2020 16:07:07 EXAM: Comprehensive 2D, Doppler, and color-flow Echocardiogram Patient Location: In-Patient Room #: 204 Status: routine BSA: 1.81 HR: 103 bpm BP: 128/80 mmHg Rhythm: NSR Other Information Study Quality: Good Indications COPD Dyspnea Elevated Troponin 2D Dimensions IVSd: 9.95 (7-11mm) LVOT Diam: 21.29 (18-24mm) LVDd: 45.08 mm PWd: 9.52 (7-11mm) Ascending Ao: 27.05 (22-36mm) LVDs: 25.91 (25-40mm) Aortic Root: 27.78 mm Volumes Left Atrial Volume (Systole) LA ESV Index: 24.30 mL/m2 Aortic Valve AoV Peak Jacob.: 1.34 m/s AO Peak Gr.: 7.16 mmHg LVOT Max P.45 mmHg AO Mean Gr.: 4.43 mmHg LVOT Mean P.34 mmHg LVOT Max V: 1.05 m/s AO V2 VTI: 26.27 cm LVOT Mean V: 0.71 m/[place] [address] 2 D/M-MODE ECHOCARDIOGRAM Name: ALTA MORA Room: [address] IN M.R.#: [id number] Admission: 12/22/20 Attend Phys: Anuj Delgado, Discharge: Date of : 37 Date of Service: 12/22/20 1649 Report #: [id number] JULIA (VTI): 2.81 cm2 LVOT V1 VTI: 20.73 cm Mitral Valve E/A Ratio: 0.53 MV Decel. Time: 185.17 ms MV E Max Jacob.: 0.65 m/s MV PHT: 53.70 ms MVA (PHT): 4.10 cm2 TDI E/Lateral E': 9.29 E/Medial E': 5.42 Medial E' Jacob.: 0.12 m/s Lateral E' Jacob.: 0.07 m/s Pulmonary Valve PV Peak Jacob.: 1.56 m/s PV Peak Gr.: 9.71 mmHg Left Ventricle The left ventricle is normal size. There is normal LV segmental wall motion. There is normal left ventricular wall thickness. Left ventricular systolic function is normal. The left ventricular ejection fraction is within the normal range. LVEF is 60-65%. Grade I - abnormal relaxation pattern. Right Ventricle Right ventricle is dilated. The right ventricular systolic function is normal. Pacemaker lead is present in the right ventricle. Atria The left atrium size is normal. Right atrium is dilated. Aortic Valve Mild aortic valve sclerosis. No aortic regurgitation is present. There is no aortic valvular stenosis. Mitral Valve The mitral valve is normal in structure. There is no mitral valve regurgitation noted. No evidence of mitral valve stenosis. Tricuspid Valve The tricuspid valve is normal in structure. Unable to assess PA pressure. Trace tricuspid regurgitation. Pulmonic Valve The pulmonary valve is normal in structure. There is no pulmonic [place] [address] 2 D/M-MODE ECHOCARDIOGRAM Name: ALTA MORA Room: [address] IN [facility]#: [id number] Admission: 12/22/20 Attend Phys: Anuj Delgado, Discharge: Date of : 37 Date of Service: 12/22/20 1649 Report #: [id number] Great Vessels The aortic root is normal in size. IVC is normal in size and collapses >50% with inspiration. Pericardium There is no pericardial effusion. <Conclusion> LVEF is 60-65%. Grade I - abnormal relaxation pattern. There is normal left ventricular wall thickness. The left ventricle is normal size. Left ventricular systolic function is normal. The left ventricular ejection fraction is within the normal range. There is normal LV segmental wall motion. Pacemaker lead is present in the right ventricle. Mild aortic valve sclerosis. No aortic regurgitation is present. There is no aortic valvular stenosis. The mitral valve is normal in structure. Unable to assess PA pressure. Trace tricuspid regurgitation. <ELECTRONICALLY SIGNED> By: Elizabeth Teran MD, FACC 12/22/201648 48 48 Elizabeth Teran MD, FACC /INF
[2020-12-22 21:14] VITALS: BP 144/71
[2020-12-23 00:32] VITALS: BP 143/73
[2020-12-23 04:51] LABS: HEMATOCRIT 33.9 % (37.0-47.0); MCH 28.6 pg (26.0-34.0); MCHC 33.4 g/dL (28.0-37.0); MCV 85.7 fL (80.0-100.0); MPV 8.3 fl. (7.2-11.1); NUCLEATED RBCS 0 /100WBC; PLATELET COUNT* 209 thou/uL (150-400); RBC 3.95 mil/uL (4.20-5.00); RDW-CV 15.6 % (10.5-14.5); WBC 10.7 thou/uL (4.0-11.0)
[2020-12-23 05:10] LABS: ALBUMIN 2.8 g/dL (3.4-5.0); ALKALINE PHOSPHATASE 211 U/L (46-116); ANION GAP 6 mmol/L (7-16); BUN 29 mg/dL (7-18); CALCIUM 8.1 mg/dL (8.5-10.1); CHLORIDE 108 mmol/L (98-107); CHOLESTEROL 137 mg/dL (<200); CO2 28 mmol/L (21-32); CREATININE 0.8 mg/dL (0.6-1.3); DIRECT BILIRUBIN 0.1 mg/dL (<0.1-0.3); GLUCOSE 143 mg/dL (70-99); HDL CHOLESTEROL 56 mg/dL (>40); LDL CHOLESTEROL 72 mg/dL (<100); NT-PRO BRAIN NAT PEPTIDE 1384 pg/mL (<300); POTASSIUM 4.6 mmol/L (3.5-5.1); SGOT 9 U/L (15-37); SGPT 14 U/L (30-65); SODIUM 142 mmol/L (136-145); TC:HDL 2.4 Ratio (Not establshd); TOTAL BILIRUBIN 0.2 mg/dL (<0.1-1.0); TRIGLYCERIDE 47 mg/dL (<150); TROPONIN-I LEVEL 0.07 ng/mL (<0.06); VLDL 9 mg/dL (<40)
[2020-12-23 05:13] LABS: SERUM ASSESSMENT Clear
[2020-12-23 05:19] LABS: HEMOGLOBIN 11.3 gm/dL (12.0-15.0)
--- NOTE | 2020-12-23 05:20 | NUR ---
PT IS ABLE TO COMMUNICATE HER NEEDS TO STAFF EFFECTIVELY. CURRENT PAIN MEDICATION REGIMEN HAS BEEN ADEQUATE FOR CONTROLLING HER PAIN UP TO THIS TIME. PT HAS BEEN COUGHING ON AND OFF DURING THIS SHIFT; SOUNDS CONGESTED BUT LOOSE.
[2020-12-23 05:54] VITALS: BP 136/80
[2020-12-23 07:01] LABS: ABSOLUTE BASOPHILS 0.1 thou/uL (0.0-0.2); ABSOLUTE EOSINOPHILS 0.1 thou/uL (0.0-0.7); ABSOLUTE LYMPHOCYTES 0.4 thou/uL (0.8-5.3); ABSOLUTE MONOCYTES 0.2 thou/uL (0.0-1.2); ABSOLUTE NEUTROPHILS 9.8 thou/uL (1.6-8.1); METAMYELOCYTES 1 %; PLATELET ESTIMATE ADEQUATE
[2020-12-23 08:00] VITALS: BP 149/86
[2020-12-23 12:21] VITALS: BP 130/62
--- NOTE | 2020-12-23 14:18 | NUR ---
Pt is A&O. Resides at home with cousin. Independent. Supportive family. No DME. No hx of HH or SNF. Cardiology and Pulm consulted. Anticipate dc in a few days.
--- NOTE | 2020-12-23 14:50 | EKG ---
[place] [address] ELECTROCARDIOGRAM REPORT Name: ALTA MORA Room: [address] ADM IN M.R.#: [id number] Admission: 12/22/20 Attend Phys: Anuj Delgado, Discharge: Date of : 37 Date of Service: 12/23/20 1358 Report #: [id number] THIS REPORT FOR: //name// [facility] Test Date: 2020-12-23 Test Time: 13:58:32 Pat Name: ALTA MORA Department: Room: [address] Gender: F Healthcare Economics Consultant: HERBERT : 1935 Requested By: Elizabeth Teran Order Number: [id number] Corinna MD: Jaxson Gregg Measurements Intervals [place] Rate: 84 P: 77 MD: 183 QRS: 39 QRSD: 80 T: 62 QT: 406 QTc: 480 Interpretive Statements Sinus rhythm Compared to ECG 12/22/2020 07:43:35 Atrial premature complex(es) no longer present Electronically Signed On 12-23-2020 14:49:56 CDT by Jaxson Gregg [email or web address] <ELECTRONICALLY SIGNED> By: Jaxson Gregg MD, [facility] 12/23/20 1449 1358 1358 Jaxson Gregg MD, [facility] /EPI
[2020-12-23 16:38] VITALS: BP 137/70
[2020-12-23 20:34] VITALS: BP 116/66
[2020-12-24 00:21] VITALS: BP 137/74
[2020-12-24 04:04] VITALS: BP 121/88
[2020-12-24 04:20] LABS: ABSOLUTE BASOPHILS 0.1 thou/uL (0.0-0.2); ABSOLUTE LYMPHOCYTES 1.3 thou/uL (0.8-5.3); ABSOLUTE MONOCYTES 0.5 thou/uL (0.0-1.2); ABSOLUTE NEUTROPHILS 13.4 thou/uL (1.6-8.1); BASOPHILS 0.4 %; EOSINOPHILS 0.1 %; HEMOGLOBIN 11.7 gm/dL (12.0-15.0); LYMPHOCYTES 8.5 %; MCH 28.3 pg (26.0-34.0); MCHC 32.6 g/dL (28.0-37.0); MCV 86.9 fL (80.0-100.0); MPV 8.1 fl. (7.2-11.1); NUCLEATED RBCS 0 /100WBC; PLATELET COUNT* 245 thou/uL (150-400); RBC 4.15 mil/uL (4.20-5.00); RDW-CV 15.8 % (10.5-14.5); WBC 15.3 thou/uL (4.0-11.0)
[2020-12-24 04:37] LABS: ALBUMIN 3.1 g/dL (3.4-5.0); CALCIUM 7.9 mg/dL (8.5-10.1); CREATININE 1.1 mg/dL (0.6-1.3); POTASSIUM 4.6 mmol/L (3.5-5.1); TOTAL BILIRUBIN 0.2 mg/dL (<0.1-1.0); TOTAL PROTEIN 7.7 g/dL (6.4-8.2)
--- NOTE | 2020-12-24 05:11 | NUR ---
PT IS ABLE TO COMMUNICATE HER NEEDS TO STAFF EFFECTIVELY. SHE HAS DENIED THE NEED FOR PAIN MEDICATION UP TO THIS TIME. PT REPORTS FEELING LIKE SHE NEEDS TO COUGH SOMETHING UP, BUT IT WILL NOT COME OUT. PT REPORTS TREMOURS ARE BASELINE. CHEST XR THIS MORNING.
[2020-12-24] MEDS ORDERED: JANUVIA25 MG PO (07:47)
[2020-12-24] MEDS ORDERED: LEVOFLOXACIN500 MG PO (07:47)
[2020-12-24] MEDS ORDERED: PREDNISONE 10 M10 MG PO (07:47)
[2020-12-24] MEDS ORDERED: PROTONIX40 M2 PO (07:47)
[2020-12-24 08:00] VITALS: BP 142/89
[2020-12-24 10:13] VITALS: BP 142/89
[2020-12-24 12:00] VITALS: BP 121/66
[2020-12-24 12:26] VITALS: BP 142/89
--- NOTE | 2020-12-24 12:30 | NUR ---
Pt discharging to home today. HH orders faxed to [facility] per Pt's request. Family in room and will provide dc transportation.
--- NOTE | 2020-12-24 16:10 | NUR ---
ASSUMED PT CARE AT 0730, PT AOX4 BUT FORGETFUL, NO C/O PAIN OR SHORTNESS OF BREATH. PT WORKED W/ RT THROUGHOUT THE DAY AND PULM GAVE OKAY FOR PT TO DC HOME SO DC ORDERS RECEIVED. IV AND MACHINE CLOTH EXAMINER REMOVED. PT DC'D BY WC W/ NURSING STAFF AND ALL PAPERWORK AND PERSONAL BELONGINGS TO DAUGHTER'S VEHICLE AT APPROX 1600
--- NOTE | 2020-12-25 10:25 | CON ---
[address] [address] CONSULTATION Name: ALTA MORA Lillian Room: [address] IN M.R.#: [id number] Admission: 12/22/20 Attend Phys: Anuj Delgado MD Discharge: 12/24/20 Date of : 37 Report #: [id number] THIS REPORT FOR: cc: Tam Carey John E. DO Pervez, Adeel MD ~ DATE OF CONSULTATION: 12/23/2020 REQUESTING PHYSICIAN: Dr. Anuj Delgado. INDICATION FOR CONSULTATION: Pulmonary infiltrates/possible mass. HISTORY OF PRESENT ILLNESS: This is an 85-year-old female with past medical history includes a history of COPD. The patient is not on supplemental oxygen at home. She does also have a history of a pacemaker and previously was reported to have a hypercoagulable state and has had DVT and pulmonary emboli in the past. Currently, she is not on anticoagulation at home. The patient at this time is admitted with acute shortness of breath. She has also had a cough. There is not much sputum. There is no chest pain. She does not describe upper respiratory complaints. There is no swelling of lower extremities. There is no calf pain. She has not been having heartburn. The patient since admission has been treated with steroids as well as ceftriaxone as well as nebulized bronchodilators. She reports significant improvement in her shortness of breath. The patient currently is not on supplemental oxygen. She has had some disturbed sleep at night as well as sleepiness during the day as well as joint pains. These complaints are at baseline. REVIEW OF SYSTEMS: The patient's review of systems for 12 points is negative except as mentioned above. PAST MEDICAL HISTORY: DVT and pulmonary emboli and possible hypercoagulable state in the past. The patient currently is not noted to be on anticoagulation. Bradycardia, status post pacemaker placement, recent admission to this hospital with dizziness/possible syncope, rheumatoid arthritis, appendectomy, left elbow surgery, gallbladder surgery, sick sinus syndrome. SOCIAL HISTORY: There is an extensive history of smoking. The patient still smokes one and half packs a day, has been smoking for 60 years. No known history of heavy alcohol use or illegal drug use. CURRENT MEDICATIONS: List in [facility] reviewed. HOME MEDICATIONS: List also in [facility] [place] [address] CONSULTATION Name: ALTA MORA Room: [address]#: [id number] Admission: 12/22/20 Attend Phys: Anuj Delgado MD Discharge: 12/24/20 Date of : 37 Report #: [id number] ALLERGIES: LATEX AND SULFA. THE PATIENT ALSO REPORTED TO HAVE HAD AN ADVERSE REACTION WITH ATENOLOL WELL CODEINE. FAMILY HISTORY: No pertinent family history known at this time. PHYSICAL EXAMINATION: GENERAL: She is alert, awake and oriented, does not appear to be in any distress at this time. VITAL SIGNS: The pulse of 98 and a blood pressure of 137/70, saturating 93 percent. She is not on supplemental oxygen. Respiratory rate is only mildly elevated to 20. She is afebrile with a temperature of 36.4. HEENT: Head is normocephalic and atraumatic. Pupils are equal and reactive. There is no throat erythema. NECK: Does not show raised JVP asymmetry, mass or lymph nodes. CHEST: Symmetrical expansion on inspection and palpation. On auscultation, breath sounds are bilaterally equal, but decreased. I do not hear any added sounds. HEART: Regular. There is no murmur. ABDOMEN: Soft and nontender. EXTREMITIES: Lower extremities show no edema, no calf tenderness. There are some varicose veins in lower extremities noted. SKIN: Dry and intact. NEUROLOGIC: Moves all extremities bilaterally equally and spontaneously with no focal deficit identified. DIAGNOSTIC DATA: The patient did have a CTA chest performed yesterday. I reviewed both the films as well as report. There is an ultrasound of the abdominal aorta performed yesterday, this is also reviewed. Chest x-ray reviewed. Also, compared with the patient's previous CT, this is discussed below in more detail. ASSESSMENT AND PLAN: 1. Pulmonary infiltrates/possible lung mass. The patient does have infiltrates, right greater than left. There is also a dense area of mass-like infiltrate noted in the right lower lobe. Certainly, this could also be secondary to pneumonia and atelectasis. However, it is noted that she has opacity in this region, although much smaller in the previous CT in 2020 as well. Therefore, the possibility of adenocarcinoma in situ/bronchoalveolar cell carcinoma also does need to be considered. At this time, I recommend treating her with Levaquin for 1 week, started with 750 mg, but this could be switched over to 500 mg daily soon. I subsequently recommend obtaining a CT chest without contrast in 4 weeks. If the findings persist, then I would consider obtaining a PET scan or biopsy of this lesion. For now, I also continued ceftriaxone. However, if she continues to improve, [place] [address] CONSULTATION Name: ALTA MORA Room: [facility] IN [place]#: [id number] Admission: 12/22/20 Attend Phys: Anuj Delgado MD Discharge: 12/24/20 Date of : 37 Report #: [id number] discontinued tomorrow. 2. Chronic obstructive pulmonary disease exacerbation. Agree with Solu-Medrol as well as nebulized bronchodilators. She is better. I will cut back Solu-Medrol dose, could be switched over to prednisone tomorrow. Note that she uses an oral ____ at home. 3. Bilateral pleural effusions/fluid overload. There are significant bilateral pleural effusions noted on the chest x-ray. This is consistent with fluid overload. I ordered one dose of Lasix now. We will reevaluate tomorrow with labs and chest x-ray. 4. 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 The suspicion is raised by the radiologist on her CT chest. I would go ahead and request Dopplers of renal arteries tomorrow. Also, recommend reviewing with cardiology. The patient currently is on an ARB and AMALIA inhibitors may be contraindicated if renal artery stenosis is present. 4. History of deep venous thrombosis and pulmonary emboli/possible hypercoagulable state. The patient currently is not on anticoagulation at home. I do not have details of her previous history available. There are no pulmonary emboli on her new CTA chest. She does have some varicose veins. I would recommend obtaining venous Dopplers as well. 5. Status post pacemaker. 6. Clostridium difficile prophylaxis Lactinex. Thanks for this consultation. <ELECTRONICALLY SIGNED> By: Michael Garza MD 12/25/20 1025 2039 0003Michael Garza MD /nt
== END 2020-12-24 16:00 | disposition home health service (06) | DRG 177 ==
LOC: M.ERS 07:24 → M.TBA-ER 09:00 → M.2W 09:00
PROVIDERS: Family Medicine; ADMIT Internal Medicine; ATTEND Internal Medicine
DX: J15.6 Pneumonia due to other Gram-negative bacteria (principal); J96.21 Acute and chronic respiratory failure with hypoxia; R65.11 Systemic inflammatory response syndrome (SIRS) of non-infectious origin with acute organ dysfunction; I21.A1 Myocardial infarction type 2; J44.1 Chronic obstructive pulmonary disease with (acute) exacerbation; I77.4 Celiac artery compression syndrome; J44.0 Chronic obstructive pulmonary disease with (acute) lower respiratory infection; Z20.822 Contact with and (suspected) exposure to COVID-19; E87.70 Fluid overload, unspecified; F17.210 Nicotine dependence, cigarettes, uncomplicated; M06.9 Rheumatoid arthritis, unspecified; I49.5 Sick sinus syndrome; I71.4 Abdominal aortic aneurysm, without rupture; I11.9 Hypertensive heart disease without heart failure; R91.1 Solitary pulmonary nodule; I70.1 Atherosclerosis of renal artery; Z90.49 Acquired absence of other specified parts of digestive tract; Z86.718 Personal history of other venous thrombosis and embolism; Z86.711 Personal history of pulmonary embolism; Z95.0 Presence of cardiac pacemaker; Z88.2 Allergy status to sulfonamides; Z88.8 Allergy status to other drugs, medicaments and biological substances; Z88.6 Allergy status to analgesic agent; Z91.040 Latex allergy status; Z87.81 Personal history of (healed) traumatic fracture; Z79.82 Long term (current) use of aspirin; Z79.899 Other long term (current) drug therapy

== ENCOUNTER 2021-01-25 08:14 | Inpatient (IN) | payer MEDICARE ==
[~2021-01-25] VITALS: Ht 170.2 cm; Wt 74.8 kg
[~2021-01-25 08:14] MED LIST changes: +ASPIR-TRIN325 MG PO; +CHOLESTYRAMINE R5 GM PO; +JANUVIA25 MG PO; +LEVOFLOXACIN500 MG PO; +METFORMIN HCL500 M3 PO; +PREDNISONE 10 M10 MG PO; +PROTONIX40 M2 PO; +VOLTAREN 50MG T50 MG PO
[2021-01-25 08:15] VITALS: BP 151/97
[2021-01-25 08:39] LABS: HEMOGLOBIN 12.4 gm/dL (12.0-15.0); MCH 27.8 pg (26.0-34.0); MCHC 32.6 g/dL (28.0-37.0); MCV 85.4 fL (80.0-100.0); MPV 7.3 fl. (7.2-11.1); NUCLEATED RBCS 0 /100WBC; PLATELET COUNT* 458 thou/uL (150-400); RBC 4.45 mil/uL (4.20-5.00); RDW-CV 15.6 % (10.5-14.5); WBC 10.2 thou/uL (4.0-11.0)
[2021-01-25 08:50] LABS: CALCIUM 8.9 mg/dL (8.5-10.1); CREATININE 0.9 mg/dL (0.6-1.3); POTASSIUM 4.1 mmol/L (3.5-5.1)
[2021-01-25 09:00] LABS: ALBUMIN 2.4 g/dL (3.4-5.0); TOTAL BILIRUBIN 0.4 mg/dL (<0.1-1.0); TOTAL PROTEIN 7.9 g/dL (6.4-8.2)
[2021-01-25 09:44] LABS: ABSOLUTE BASOPHILS 0.2 thou/uL (0.0-0.2); ABSOLUTE LYMPHOCYTES 0.5 thou/uL (0.8-5.3); ABSOLUTE MONOCYTES 0.5 thou/uL (0.0-1.2); PLATELET ESTIMATE ADEQUATE
--- NOTE | 2021-01-25 12:29 | EKG ---
[place] [address] ELECTROCARDIOGRAM REPORT Name: ALTA MORA Room: [place] [address] ADM IN .R.#: [id number] Admission: 01/25/21 Attend Phys: Anuj Delgado, Discharge: Date of : 37 Date of Service: 01/25/21 0815 Report #: [id number] THIS REPORT FOR: //name// [facility] ED Test Date: 2021-01-25 Test Time: 08:15:56 Pat Name: ALTA MORA Department: Room: [facility] Gender: F Academic Affairs Assistant: TODD : 1935 Requested By: Ha Banerjee Order Number: [id number] MD: Smith Jose Measurements Intervals [place] Rate: 107 P: 73 OR: 175 QRS: 47 QRSD: 78 T: 36 QT: 347 QTc: 463 Interpretive Statements Sinus tachycardia Compared to ECG 12/23/2020 13:58:32 Sinus rhythm no longer present Electronically Signed On 01-25-2021 12:28:57 CDT by Smith Jose [email or web address] <ELECTRONICALLY SIGNED> By: Smith Jose MD, FAC 01/25/21 1228 4 4 Smith Jose MD, [facility] /EPI
--- NOTE | 2021-01-25 13:45 | NUR ---
THIS NURSE SPOKE WITH ,MACHINE SHOP REPAIR TECHNICIAN AND GAVE HIM AN UPDATE ON PATIENT STATUS. DR. DEL VALLE STATED THAT THEY "WILL PUT HER ON THEIR LIST".
[2021-01-25 13:55] VITALS: BP 125/69
[2021-01-25 16:34] VITALS: BP 135/85
[2021-01-25 17:10] VITALS: BP 143/90
--- NOTE | 2021-01-25 18:47 | NUR ---
PT. ADMITTED TO FLOOR FROM ER, REPORT RECEIVED FROM DIRK ARRIAZA. ADMISSION INTERVENTIONS COMPLETED. AOX4, VSS, O2 2L, BSC, FALL APRECAUTIONS FOLLOWED. CALL BOYD AND PT. BELONGINGS PLACED WITHIN REACH. PT. IN BED, IN STABLE CONDITION, WATCHING TV AT THIS TIME.
[2021-01-25 20:00] VITALS: BP 129/79
[2021-01-26] VITALS: BP 124/77
--- NOTE | 2021-01-26 03:57 | NUR ---
PT ALERT ORIENTED. UP WITH STD BY ASSIST. MEDICAL CODING AUDITOR TRACING SR. O2 AT 2 LITERS NC. ACCU CHECK. PT CO OF IV SITE BEING A FIELD STICK. IV CHGD TO L HAND. NPO FOR POSSIBLE THOROCENTESIS.
[2021-01-26 04:00] VITALS: BP 142/83
[2021-01-26 04:27] LABS: ABSOLUTE LYMPHOCYTES 0.6 thou/uL (0.8-5.3); ABSOLUTE MONOCYTES 0.1 thou/uL (0.0-1.2); ABSOLUTE NEUTROPHILS 8.5 thou/uL (1.6-8.1); BASOPHILS 0.4 %; HEMATOCRIT 33.7 % (37.0-47.0); HEMOGLOBIN 11.1 gm/dL (12.0-15.0); LYMPHOCYTES 6.4 %; MCH 27.9 pg (26.0-34.0); MCHC 32.9 g/dL (28.0-37.0); MCV 84.8 fL (80.0-100.0); MONOCYTES 0.9 %; MPV 7.6 fl. (7.2-11.1); NUCLEATED RBCS 0 /100WBC; PLATELET COUNT* 412 thou/uL (150-400); POLYS 92.3 %; RBC 3.98 mil/uL (4.20-5.00); RDW-CV 15.5 % (10.5-14.5); WBC 9.2 thou/uL (4.0-11.0)
[2021-01-26 04:31] LABS: CALCIUM 8.3 mg/dL (8.5-10.1); CREATININE 0.8 mg/dL (0.6-1.3); POTASSIUM 4.2 mmol/L (3.5-5.1)
--- NOTE | 2021-01-26 07:25 | NUR ---
CHANGE OF SHIFT REPORT GIVEN PATIENT SEEN AT BEDSIDE, IN BED RESTING ASSUMED PATIENT CARE
[2021-01-26 08:00] VITALS: BP 152/95
[2021-01-26 11:17] LABS: APTT 24.1 Seconds (25.0-31.3)
[2021-01-26 11:58] VITALS: BP 145/61
[2021-01-26 14:32] LABS: BE 0.8 mmol/L (-2 to +3); PCO2 43.6 mmHg (35.0-45.0); PO2 63.9 mmHg (75.0-100.0); pH 7.393 (7.340-7.450)
[2021-01-26 15:26] LABS: BF RBC 4708 /mm3; TOTAL CELL COUNT 4710 /mm3
[2021-01-26 15:39] LABS: CLARITY HAZY; TOTAL VOLUME 1150 ml
[2021-01-26 15:54] LABS: BF LYMPHOCYTES 95 %; BF MONOCYTES 5 %; BF TISSUE 11 /100 WBC; SOURCE PLEURAL FLUID
[2021-01-26 16:11] VITALS: BP 122/77
--- NOTE | 2021-01-26 16:52 | NUR ---
CM ASSESSMENT: PT A&O, INDEPENDENT WITH ADL'S PRIOR TO ADMIT. PT RESIDES AT HOME WITH COUSIN. PT USES WALKER AT HOME OCCATIONALLY. PT IS CURRENT WITH [facility], AND PLANS TO RESUME HH WITH [facility] AT D/C. PT HAS 0 HX OF SNF. CM WILL REMAIN AVAILABLE TO ASSIST AND FOLLOW NEEDED. [facility] PHONE: [phone] FAX: [phone]
[2021-01-26 20:00] VITALS: BP 102/54
[2021-01-27] VITALS: BP 109/67
[2021-01-27 04:00] VITALS: BP 129/71
--- NOTE | 2021-01-27 04:28 | NUR ---
PT ALERT ORIENTED. O2 AT 2 LITER. MACHINE HOSTLER TRACING SR. PT NPO FOR POSSIBLE THOROCENTESIS PER REPORT FROM DAY SHIFT.
[2021-01-27 04:40] LABS: ABSOLUTE LYMPHOCYTES 0.8 thou/uL (0.8-5.3); ABSOLUTE MONOCYTES 0.6 thou/uL (0.0-1.2); ABSOLUTE NEUTROPHILS 14.2 thou/uL (1.6-8.1); BASOPHILS 0.3 %; HEMATOCRIT 32.5 % (37.0-47.0); HEMOGLOBIN 10.4 gm/dL (12.0-15.0); MCH 27.4 pg (26.0-34.0); MCV 85.8 fL (80.0-100.0); MONOCYTES 3.7 %; MPV 7.7 fl. (7.2-11.1); NUCLEATED RBCS 0 /100WBC; PLATELET COUNT* 398 thou/uL (150-400); RBC 3.79 mil/uL (4.20-5.00); RDW-CV 15.1 % (10.5-14.5); WBC 15.6 thou/uL (4.0-11.0)
[2021-01-27 05:16] LABS: CALCIUM 8.1 mg/dL (8.5-10.1); MAGNESIUM 2.1 mg/dL (1.8-2.4); POTASSIUM 4.4 mmol/L (3.5-5.1); TOTAL BILIRUBIN 0.2 mg/dL (<0.1-1.0); TOTAL PROTEIN 6.3 g/dL (6.4-8.2)
[2021-01-27 07:52] LABS: SOURCE THORACENTESIS
[2021-01-27 08:00] VITALS: BP 134/88
[2021-01-27 11:39] LABS: BF LYMPHOCYTES 100 %
[2021-01-27 11:40] LABS: BF RBC 4045 /mm3; CLARITY CLEAR; SOURCE PLEURAL FLUID; TOTAL CELL COUNT 4570 /mm3; TOTAL VOLUME 850 ml
[2021-01-27 17:38] VITALS: BP 119/72
--- NOTE | 2021-01-27 19:41 | NUR ---
[facility]ER [place] [facility] TRACKING WITH NO CHANGE IN RHYTHM. 02 ON 1.5 LITERS PER NC. UP TO BSC TO VOID. SOA NOTED WITH ACTIVITY. THORACENTSIS COMPLETED EARLIER TODAY - 800ML TAKEN OF RIGHT SIDE PER REPORT. UP IN CHAIR FOR SHORT TIME. NO COMPLAINTS OF PAIN, NAUSEA OR ANY DISCOMFORT TO NURSING. BANDAID DRESSING REMAINS CDI TO RIGHT BACK. CALL LIGHT WITHIN REACH, WILL CONTINUE WITH PLAN OF CARE.
--- NOTE | 2021-01-27 22:17 | CON ---
[address] [address] CONSULTATION Name: ALTA MORA Lillian Room: [address] IN M.R.#: [id number] Admission: 01/25/21 Attend Phys: Anuj Delgado MD Discharge: Date of : 37 Report #: [id number] THIS REPORT FOR: cc: Tam Carey John E. DO Pervez, Adeel MD ~ DATE OF CONSULTATION: 01/26/2021 REQUESTING PHYSICIAN: Anuj Delgado MD INDICATION FOR CONSULTATION: Right-sided pleural effusion. HISTORY OF PRESENT ILLNESS: This is an 85-year-old female. Her past medical history is as mentioned below. I also saw her recently during her previous hospitalization, which was just about a month ago. The patient has had a right-sided pleural effusion. There is also a mass-like infiltrate in the right lung, which is also seen, but is smaller in size on the CT, which was performed in 2019. The patient did have a thoracentesis performed during the last hospitalization. We also treated her with broad-spectrum antibiotics and the plan was to obtain a followup CT as an outpatient and then evaluate further in a month. The patient's pleural effusion; however, reoccurred and markedly increased in size and she in fact got admitted here before she could be seen as an outpatient. The patient at this time reports increasing shortness of breath. She has a cough. There is not much sputum. There is no significant swelling of lower extremities or calf pain. The patient is currently maintaining O2 saturation with only 1 liter of oxygen in place. REVIEW OF SYSTEMS: For 12 points is negative except as mentioned above. PAST MEDICAL HISTORY: COPD, she is not on supplemental oxygen, status post pacemaker, hypercoagulable state as mentioned in the records and also history of DVT and pulmonary emboli in the past. The patient, however, is not on long-term anticoagulation, previous admission to this hospital with dizziness and syncope earlier this year, rheumatoid arthritis, appendectomy, left elbow surgery, gallbladder surgery, sick sinus syndrome. The patient's last available echocardiogram is from about a month ago and shows a left ventricular ejection fraction of 60-65% without significant elevation in right heart pressures. SOCIAL HISTORY: There is an extensive history of smoking in the past. The patient says that she has not smoked since her last admission, which was about a month ago. No known history of heavy alcohol use or illegal drug use. CURRENT MEDICATIONS: List in [facility] reviewed. HOME MEDICATIONS: List also in [facility] [place] [address] CONSULTATION Name: ALTA MORA Lillian Room: [address] IN [facility]#: [id number] Admission: 01/25/21 Attend Phys: Anuj Delgado MD Discharge: Date of : 37 Report #: [id number] FAMILY HISTORY: No pertinent family history. ALLERGIES: LATEX AND SULFA. SHE HAS HAD AN ADVERSE REACTION, WHICH MAY NOT HAVE BEEN AN ALLERGY TO ATENOLOL AND CODEINE. PHYSICAL EXAMINATION: GENERAL: She is alert, awake and oriented, does not appear to be in any distress at this time. VITAL SIGNS: Has a pulse of 87 and a blood pressure of 122/77. She is saturating 94-95%, only 1 liter nasal cannula. Respiratory rate mildly elevated to 20, afebrile with a temperature of 36.7. HEENT: Head is normocephalic and atraumatic. Pupils are equal and reactive. There is no throat erythema. NECK: Does not show raised JVP, asymmetry, mass or lymph nodes. CHEST: Symmetrical expansion on inspection and palpation. On auscultation; however, breath sounds are decreased at the right lung base. HEART: Regular. There is no murmur. ABDOMEN: Soft and nontender. EXTREMITIES: Lower extremities show no edema, no calf tenderness. SKIN: Dry and intact. NEUROLOGIC: Moves all extremities bilaterally equally and spontaneously with no focal deficit identified. LABORATORY DATA: The patient's lab work as well as CT chest are in [facility] and these are reviewed. I reviewed both the films as well as the report. ASSESSMENT AND PLAN: 1. Pulmonary infiltrate/possible lung mass/large right-sided pleural effusion. The patient had thoracentesis performed today; however, it appears likely that a significant part of this pleural effusion still remains. I would therefore recommend proceeding to a repeat thoracentesis tomorrow morning. After the repeat thoracentesis is performed, we will obtain a CT chest and then reassess the underlying lung parenchyma. Meanwhile, we will continue with broad-spectrum antibiotics. If the previously seen lesion is seen again, then we may consider a CT-guided lung biopsy; however, we may need to review with pathology regarding further cytology from the pleural effusion can be obtained first. 2. Chronic obstructive pulmonary disease. We will continue with Solu-Medrol and we will order nebulized bronchodilators; however, I cut back the Solu-Medrol dose. 3. History of deep venous thrombosis and pulmonary emboli/possible hypercoagulable state. The patient is noted to not be on long-term anticoagulation. 4. Possible renal artery/celiac artery stenosis. This suspicion was raised by [address] [place] [address] CONSULTATION Name: ALTA MORA Room: [address] IN .R.#: [id number] Admission: 01/25/21 Attend Phys: Anuj Delgado MD Discharge: Date of : 37 Report #: [id number] the radiologist on the CT chest last month and there is a renal artery ultrasound performed last month as well, which shows possible hemodynamically significant right renal artery stenosis. We will review further with the primary service tomorrow regarding workup. Also, the patient is on losartan and this is a relative contraindication to use of ARBs. 5. Clostridium difficile prophylaxis. We will order Lactinex. 6. Gastrointestinal prophylaxis. She is on Protonix. Thanks for this consultation. <ELECTRONICALLY SIGNED> By: Michael Garza MD 01/27/21 2217 1759 1951Adenilson Garza MD /nt
[2021-01-28] VITALS: BP 122/69
[2021-01-28 04:00] VITALS: BP 144/69
[2021-01-28 04:28] LABS: HEMATOCRIT 33.8 % (37.0-47.0); HEMOGLOBIN 10.9 gm/dL (12.0-15.0); MCH 27.4 pg (26.0-34.0); MCHC 32.2 g/dL (28.0-37.0); MCV 85.2 fL (80.0-100.0); MPV 7.3 fl. (7.2-11.1); RBC 3.96 mil/uL (4.20-5.00); RDW-CV 15.4 % (10.5-14.5)
[2021-01-28 04:38] LABS: CALCIUM 8.3 mg/dL (8.5-10.1); CREATININE 0.9 mg/dL (0.6-1.3); POTASSIUM 4.5 mmol/L (3.5-5.1)
[2021-01-28 08:14] VITALS: BP 112/74
--- NOTE | 2021-01-28 11:22 | NUR ---
IV alarm not infusing high pressure. took off coban. iv catheter kinked, flushed fine, new dressing applied/ iv infusing. no signs of phlebitis or infiltration.
[2021-01-28 12:09] VITALS: BP 103/56
[2021-01-28 13:08] LABS: BODY FLUID PROTEIN 4.2 g/dL (())
--- NOTE | 2021-01-28 13:17 | NUR ---
ASSUMED CARE OF PT AT 0730. PT SITTING AT EDGE OF BED WAITING FOR BREAKFAST. A&0X4, DENIES ANY PAIN OR SHORTNESS OF BREATH AT THIS TIME. TRACING SR ON THE RESISTOR WINDER. ON 1.5L NC SAT MID 90'S. PT UP WITH 1 SBA TO BATHROOM. URINALYSIS OBTAINED AND SENT TO LAB. AWAITING RESULTS AT THIS TIME. PULM CONSULT IN PLACE. PT GOAL FOR TODAY IS INCREASE ACTIVITY AND TITRATE OXYGEN. AM ASSESSMENT CHARTED. MEDICATIONS PER JUL. PT REPOSITIONS SELF WITH REMINDERS. HOURLY ROUNDING OBSERVED. BED IN LOW POSITION. CALL LIGHT WITHIN REACH. WILL CONTINUE PLAN OF CARE.
[2021-01-28 16:19] VITALS: BP 133/70
[2021-01-28 17:06] LABS: BODY FLUID AMYLASE 40 U/L (()); BODY FLUID LDH 186 IU/L (()); BODY FLUID PROTEIN 3.6 g/dL (())
[2021-01-28 20:00] VITALS: BP 111/67
[2021-01-29] VITALS: BP 121/64
[2021-01-29 04:00] VITALS: BP 123/73
[2021-01-29 04:03] LABS: ABSOLUTE BASOPHILS 0.1 thou/uL (0.0-0.2); ABSOLUTE EOSINOPHILS 0.1 thou/uL (0.0-0.7); ABSOLUTE LYMPHOCYTES 1.1 thou/uL (0.8-5.3); ABSOLUTE MONOCYTES 0.7 thou/uL (0.0-1.2); ABSOLUTE NEUTROPHILS 9.1 thou/uL (1.6-8.1); BASOPHILS 0.7 %; HEMATOCRIT 34.2 % (37.0-47.0); HEMOGLOBIN 11.1 gm/dL (12.0-15.0); LYMPHOCYTES 10.1 %; MCH 27.6 pg (26.0-34.0); MCHC 32.6 g/dL (28.0-37.0); MCV 84.8 fL (80.0-100.0); MONOCYTES 6.5 %; NUCLEATED RBCS 0 /100WBC; PLATELET COUNT* 333 thou/uL (150-400); POLYS 81.7 %; RBC 4.03 mil/uL (4.20-5.00); RDW-CV 15.5 % (10.5-14.5); WBC 11.1 thou/uL (4.0-11.0)
[2021-01-29 04:13] LABS: CALCIUM 7.8 mg/dL (8.5-10.1); MAGNESIUM 2.1 mg/dL (1.8-2.4); POTASSIUM 4.4 mmol/L (3.5-5.1)
--- NOTE | 2021-01-29 05:46 | NUR ---
PT A&O X 4. ON RA. MEDS GIVEN ORDERED. UP TO BSC WITH SBA. NO C/O PAIN. PT SLEPT OFF AND ON. SNACKS GIVEN PER PT REQUEST. CALL LIGHT WITHIN REACH. WILL CONTINUE TO MONITOR.
[2021-01-29 08:10] VITALS: BP 139/81
[2021-01-29 12:50] VITALS: BP 125/77
--- NOTE | 2021-01-29 15:03 | NUR ---
PLAN OF CARE: PHYSICIAN INFORMS OF PLAN FOR THE PT TO REMAIN INPT THROUGH THE WEEKEND. PLAN FOR THE PT TO RETURN HOME AT D/C AND RESUME PREVIOUS HH WITH [facility] . CALL AND FAX D/C INFO TO [facility] AT D/C. CM WILL REMAIN AVAILABLE TO ASSIST AND FOLLOW NEEDED. [facility] PHONE: [phone] FAX: [phone]
[2021-01-29 16:00] VITALS: BP 141/83
[2021-01-29 19:45] VITALS: BP 123/76
[2021-01-30] VITALS: BP 138/82
[2021-01-30 04:00] VITALS: BP 150/80
--- NOTE | 2021-01-30 04:34 | NUR ---
PT A&O X 4. VSS ON RA. MEDS GIVEN ORDERED. UP TO BSC INDEPENDENTLY. CALL LIGHT WITHIN REACH. WILL CONTINUE TO MONITOR.
[2021-01-30 05:11] LABS: HEMATOCRIT 34.7 % (37.0-47.0); HEMOGLOBIN 11.3 gm/dL (12.0-15.0); MCH 27.7 pg (26.0-34.0); MCHC 32.6 g/dL (28.0-37.0); MCV 84.8 fL (80.0-100.0); MPV 7.5 fl. (7.2-11.1); RBC 4.09 mil/uL (4.20-5.00); RDW-CV 15.8 % (10.5-14.5); WBC 9.8 thou/uL (4.0-11.0)
[2021-01-30 06:05] LABS: CALCIUM 7.9 mg/dL (8.5-10.1)
[2021-01-30 09:00] VITALS: BP 116/74
[2021-01-30 17:52] VITALS: BP 123/68
--- NOTE | 2021-01-30 20:03 | NUR ---
PT. AOX4, VSS, CALL LIGHT AND PERSONAL BELONGINGS PLACED WITHIN REACH. PT. VISITED BY FAMILY MEMBER AT BEDSIDE. PT. IN BED, WATCHING TV, IN STABLE CONDITION, AT SHIFT CHANGE.
[2021-01-30 20:30] VITALS: BP 107/56
[2021-01-31] VITALS: BP 110/68
[2021-01-31 04:01] VITALS: BP 144/76
[2021-01-31 07:25] VITALS: BP 102/61
[2021-01-31 11:06] LABS: BODY FLUID PH 7.5 (Not Estab.)
[2021-01-31 11:06] LABS: BODY FLUID PH 7.5 (Not Estab.)
[2021-01-31 12:00] VITALS: BP 100/63
[2021-01-31 16:00] VITALS: BP 114/61
--- NOTE | 2021-01-31 16:19 | NUR ---
PT REMAINED ALERT AND ORIENTED. PT INDEPENDENT TO BEDSIDE COMMODE. FALL RISK PRECAUTIONS IN PLACE. HOURLY ROUNDING COMPELTED. CALL LIGHT WITHIN REACH.
[2021-01-31 20:00] VITALS: BP 108/57
[2021-02-01 04:00] VITALS: BP 111/66
--- NOTE | 2021-02-01 05:52 | NUR ---
ASSUMED PT CARE AT APPROX 1930. PT IS AWAKE AND ORIENTED X4. PT IS NOT IN DISTRESS, NO DESATURATIONS NOTED ON ROOM AIR. PT IS TRACING SR wiTH PACs ON THE MONITOR, SOMETIMES WOULD HAVE V PACED RHYTHMS. PT DENIES CHEST PAIN. NO ACUTE CHANGES THIS SHIFT. CALL LIGHT WITHIN REACH. HOURLY ROUNDING DONE FOR PT SAFETY.
[2021-02-01 08:35] VITALS: BP 126/78
[2021-02-01 10:24] LABS: ABSOLUTE BASOPHILS 0.2 thou/uL (0.0-0.2); ABSOLUTE EOSINOPHILS 0.1 thou/uL (0.0-0.7); ABSOLUTE LYMPHOCYTES 1.2 thou/uL (0.8-5.3); ABSOLUTE MONOCYTES 0.4 thou/uL (0.0-1.2); ABSOLUTE NEUTROPHILS 10.3 thou/uL (1.6-8.1); BASOPHILS 1.3 %; HEMATOCRIT 36.1 % (37.0-47.0); HEMOGLOBIN 11.5 gm/dL (12.0-15.0); MCH 27.3 pg (26.0-34.0); MCV 85.5 fL (80.0-100.0); MONOCYTES 3.6 %; MPV 7.3 fl. (7.2-11.1); NUCLEATED RBCS 0 /100WBC; PLATELET COUNT* 292 thou/uL (150-400); POLYS 84.1 %; RBC 4.22 mil/uL (4.20-5.00); RDW-CV 16.1 % (10.5-14.5); WBC 12.3 thou/uL (4.0-11.0)
[2021-02-01 10:40] LABS: ALBUMIN 2.4 g/dL (3.4-5.0); CALCIUM 7.7 mg/dL (8.5-10.1); CREATININE 1.1 mg/dL (0.6-1.3); POTASSIUM 3.7 mmol/L (3.5-5.1); TOTAL BILIRUBIN 0.3 mg/dL (<0.1-1.0); TOTAL PROTEIN 5.8 g/dL (6.4-8.2)
[2021-02-01] MEDS ORDERED: LINEZOLID600 MG PO ×2 (11:33)
[2021-02-01] MEDS ORDERED: PREDNISONE 10 M10 MG PO ×2 (11:33)
[2021-02-01] MEDS ORDERED: ACIDOPHILUS1 EAC4 PO ×2 (11:33)
[2021-02-01 12:02] VITALS: BP 111/66
[2021-02-01 12:51] VITALS: BP 111/66
--- NOTE | 2021-02-01 14:40 | NUR ---
PHYSICIAN INFORMS OF PLAN FOR THE PT TO D/C HOME TOD[facility] WITH HH. PT IN AGREEMENT AND REQUEST TO RESUME HH WITH [facility]. CM INFORMED [facility] OF PT'S D/C AND [facility] WILL CONTACT THE PT TO ARRANGE TIME TO VISIT. CM WILL REMAIN AVAILABLE TO ASSIST AND FOLLOW NEEDED. [facility] PHONE: [phone] FAX: [phone]
[2021-02-01 16:00] VITALS: BP 113/64
[2021-02-01 21:46] VITALS: BP 125/59
[2021-02-02 00:13] VITALS: BP 108/68
[2021-02-02 04:37] VITALS: BP 120/73
[2021-02-02 05:34] LABS: ALBUMIN 2.3 g/dL (3.4-5.0); CALCIUM 8.2 mg/dL (8.5-10.1); MAGNESIUM 2.2 mg/dL (1.8-2.4); POTASSIUM 3.9 mmol/L (3.5-5.1); TOTAL BILIRUBIN 0.3 mg/dL (<0.1-1.0); TOTAL PROTEIN 6.3 g/dL (6.4-8.2)
--- NOTE | 2021-02-02 07:35 | NUR ---
PT A&OX4, VSS ON ROOM AIR, IV SALINE LOCKED, UP AD THEO. SR ON TELE MONITOR. NPO SINCE MIDNIGHT. NO CO PAIN OR DISCOMFORT. REPORT GIVEN AND CARE TRANSFERED TO DAY SHIFT NURSE AT APPROX 0715.
--- NOTE | 2021-02-02 11:07 | PATH ---
[address] [address] PATHOLOGY RPT PROCEDURE Name: ALTA MORA Room: [address] IN [facility]#: [id number] Admission: 01/25/21 Date of : 37 Discharge: Report #: [id number] Path Case #: [id number] Note [facility] Accession Number: [id number] TESTS RESULT FLAG UNITS REF RANGE LAB Clinician Provided Cytology Information No. of containers..01 Other (Miscellaneous) Source: PLEURAL FLUID DIAGNOSIS: 02 PLEURAL FLUID NEGATIVE FOR MALIGNANT CELLS. MESOTHELIAL CELLS AND INFLAMMATORY CELLS, PREDOMINANTLY CHRONIC. Signed out by: 02 Michel Gotti MD, Pathologist NPI- [id number] Performed by: 01 Luana Peterson, Lap Polisher ([facility]) Gross description: 01 10ML, CLOUDY YELLOW, 1 TP /LCS 02/01/2021 0837 Local FLAG LEGEND: L-Low Normal,H-High Normal,LL-Alert Low,HH-Alert High <-Panic Low,>-Panic High,A-Abnormal,AA-Critical Abnormal Performed at: [address] [place] [address] John Wang MD, [address] [place] [address] [facility], [place] [address] Michel Gotti MD, Specimen Comment: A courtesy copy of this report has been sent to [phone], [phone] Specimen Comment: [phone] Specimen Comment: Report sent to DR. MENA / DR CARBALLO Specimen Comment: A duplicate report has been generated due to demographic updates. Performed at: [address], [place], [place] [id number] MD John Wang MD Phone: [phone]
[2021-02-02 11:26] LABS: BF RBC 1960 /mm3; TOTAL CELL COUNT 2662 /mm3; TOTAL VOLUME 760 ml
[2021-02-02 11:27] LABS: CLARITY HAZY
[2021-02-02 12:11] LABS: BF LYMPHOCYTES 87 %; BF MONOCYTES 12 %; BF POLYS 1 %; SOURCE THORACENTESIS
[2021-02-03 09:24] LABS: SOURCE THORACENTESIS
[2021-02-04 14:07] LABS: BODY FLUID PROTEIN 3.7 g/dL (())
--- NOTE | 2021-02-04 17:06 | PATH ---
[address] [address] PATHOLOGY RPT PROCEDURE Name: ALTA MORA Room: [address] IN [facility]#: [id number] Admission: 01/25/21 Date of : 37 Discharge: 02/02/21 Report #: [id number] Path Case #: [id number] Note [facility] Accession Number: [id number] TESTS RESULT FLAG UNITS REF RANGE LAB Clinician Provided Cytology Information No. of containers..01 Other (Miscellaneous) Source: RIGHT PLEURAL FLUID DIAGNOSIS: 02 RIGHT PLEURAL FLUID NEGATIVE FOR MALIGNANT CELLS. FEW MESOTHELIAL CELLS AND INFLAMMATORY CELLS ARE PRESENT. SCANT CELLULARITY. THIS INTERPRETATION INCLUDES EVALUATION OF A CELL BLOCK. Signed out by: 02 Michel Gotti MD, Pathologist NPI- [id number] Performed by: 01 Ileana Porter, Database Consultant ([facility]) Gross description: 01 4ML, HAZY YELLOW, 1 TP 1 CB /LCS 02/03/2021 1843 Local FLAG LEGEND: L-Low Normal,H-High Normal,LL-Alert Low,HH-Alert High <-Panic Low,>-Panic High,A-Abnormal,AA-Critical Abnormal Performed at: [address] [place] [address] John Wang MD, [address] [place] [id number] Michel Gotti MD, Specimen Comment: A courtesy copy of this report has been sent to [phone], [phone] Specimen Comment: [phone], Specimen Comment: Report sent to , DR CARBALLO / DR FARAH Performed at: [address], [place], [place] [id number] MD John Wang MD Phone: [phone]
== END 2021-02-02 12:30 | disposition home health service (06) | DRG 177 ==
LOC: M.ERS 08:14 → M.2W 09:12 → M.TBA-ER 09:12 → M.2W 16:44
PROVIDERS: Emergency Medicine Emergency Medical Services; Family Medicine; Internal Medicine; Internal Medicine Critical Care Medicine; ADMIT Internal Medicine; ATTEND Internal Medicine
PROC: 0W993ZZ Drainage of Right Pleural Cavity, Percutaneous Approach (ICD-10-PCS; principal; 2021-01-26)
PROC: 0W993ZZ Drainage of Right Pleural Cavity, Percutaneous Approach (ICD-10-PCS; 2021-01-27)
PROC: 0W993ZZ Drainage of Right Pleural Cavity, Percutaneous Approach (ICD-10-PCS; 2021-02-02)
DX: J15.6 Pneumonia due to other Gram-negative bacteria (principal); J96.01 Acute respiratory failure with hypoxia; J91.8 Pleural effusion in other conditions classified elsewhere; J44.0 Chronic obstructive pulmonary disease with (acute) lower respiratory infection; I77.4 Celiac artery compression syndrome; M06.9 Rheumatoid arthritis, unspecified; I10 Essential (primary) hypertension; F17.210 Nicotine dependence, cigarettes, uncomplicated; R91.8 Other nonspecific abnormal finding of lung field; I70.1 Atherosclerosis of renal artery; Z20.822 Contact with and (suspected) exposure to COVID-19; Z90.49 Acquired absence of other specified parts of digestive tract; Z86.718 Personal history of other venous thrombosis and embolism; Z86.711 Personal history of pulmonary embolism; Z95.0 Presence of cardiac pacemaker; Z88.2 Allergy status to sulfonamides; Z88.8 Allergy status to other drugs, medicaments and biological substances; Z88.6 Allergy status to analgesic agent; Z91.040 Latex allergy status; Z79.82 Long term (current) use of aspirin; Z79.899 Other long term (current) drug therapy

== ENCOUNTER → 2021-02-02 | Outpatient (CLI) | payer MEDICARE ==
[~2021-02-02] MED LIST changes: +ACIDOPHILUS1 EAC4 PO; +LINEZOLID600 MG PO
== END ==
LOC: M.CT 15:00
PROVIDERS: ATTEND Internal Medicine Critical Care Medicine
DX: J98.4 Other disorders of lung (principal); J90 Pleural effusion, not elsewhere classified; I25.10 Atherosclerotic heart disease of native coronary artery without angina pectoris; I77.810 Thoracic aortic ectasia; I26.09 Other pulmonary embolism with acute cor pulmonale; I70.0 Atherosclerosis of aorta

== ENCOUNTER → 2021-02-24 | Outpatient (CLI) | payer MEDICARE | LOC: M.RAD 15:27 | PROVIDERS: ATTEND Internal Medicine Critical Care Medicine | DX: J90 Pleural effusion, not elsewhere classified (principal); J98.11 Atelectasis ==

== ENCOUNTER → 2021-06-22 | Outpatient (CLI) | payer MEDICARE | LOC: M.RAD 14:54 | PROVIDERS: ATTEND Internal Medicine Critical Care Medicine | DX: J90 Pleural effusion, not elsewhere classified (principal); J98.11 Atelectasis; J84.89 Other specified interstitial pulmonary diseases; J44.9 Chronic obstructive pulmonary disease, unspecified; Z95.0 Presence of cardiac pacemaker ==

== ENCOUNTER → 2021-07-01 | Outpatient (CLI) | payer MEDICARE ==
[2021-07-01 16:51] LABS: ALBUMIN 3.2 g/dL (3.4-5.0); CALCIUM 8.5 mg/dL (8.5-10.1); CREATININE 0.7 mg/dL (0.6-1.3); MAGNESIUM 2.1 mg/dL (1.8-2.4); POTASSIUM 4.5 mmol/L (3.5-5.1); TOTAL BILIRUBIN 0.4 mg/dL (<0.1-1.0)
== END ==
LOC: M.LAB 15:53
PROVIDERS: ATTEND Internal Medicine Critical Care Medicine
DX: J90 Pleural effusion, not elsewhere classified (principal); R06.02 Shortness of breath